=== PATIENT | male | born 1965 | race American Indian/Alaskan Native ===

== ENCOUNTER 2017-01-22 17:47 | Emergency (ER) | payer OTHER ==
[2017-01-22] MEDS ORDERED: DUONEB *Not for PRN Use IH ONE ×2 (18:32→20:53)
[2017-01-22 18:33] LABS: Basophils % (Auto) 0.6 % (0.0-1.8); Eosinophils % (Auto) 4.1 % (0.0-4.3); Hematocrit 46.7 % (35.5-45.6); Hemoglobin 15.2 gm/dl (11.8-15.2); Mean Corpuscular HGB Conc 33 % (32-34); Mean Corpuscular Hemoglobin 28 pg (28-32); Mean Corpuscular Volume 86 fl (84-94); Platelet Count 217 K/mm3 (140-440); Red Cell Distribution Width 13.9 % (13.2-15.2); White Blood Count 7.5 K/mm3 (4.5-11.0)
[2017-01-22 18:37] LABS: Anion Gap 16 mmol/L; BUN/Creatinine Ratio 11; Blood Urea Nitrogen 11 mg/dL (9-20); Carbon Dioxide 29 mmol/L (22-30); Glucose 81 mg/dL (75-100); Potassium 4.6 mmol/L (3.6-5.0); Sodium 141 mmol/L (137-145)
--- NOTE | 2017-01-22 18:43 | Emergency Department Report ---
Chief Complaint: Dyspnea/Respdistress Stated Complaint: CP Time Seen by Provider: 01/22/17 18:41 - HPI History of Present Illness: Patient with H/O asthma and sarcoidosis states he ran out of his prednisone, rescue inhaler and nebulizer refills last week and started to feel SOB and had worsening wheezing over the last few days; this morning started having intermittent left-sided CP; denies N/V - ROS Review of Systems: Negative except for those stated in HPI - Exam Vital Signs: Vital Signs 01/22/17 17:57 Temperature 97.8 F Pulse Rate 80 Blood Pressure 129/80 O2 Sat by Pulse 99 Oximetry Physical Exam: NAD RRR Bilateral inspiratory and expiratory wheezing present MSE screening note: Focused history and physical exam performed. Due to findings the following was ordered: labs, EKG, CXR Patient to be seen by provider in Main ED ED Medical Decision Making - Lab Data Result diagrams: 01/22/17 18:09 01/22/17 18:09 ED Disposition for MSE Condition: Stable
--- NOTE | 2017-01-22 20:14 | XRay Report ---
FINAL REPORT PROCEDURE: Chest. TECHNIQUE: PA and lateral views. HISTORY: Shortness of breath. COMPARISON: No prior studies are available for comparison. FINDINGS: The heart size is normal. There is abnormal interstitial opacity in both lungs. This is most severe in the upper lobes. There is elevation of both jacob from fibrotic retraction. There is apical pleural thickening on the right. There are no definite mass lesions. There are no definite signs of pneumonia. Comparison to older radiographs would be useful if they can be made available. There are no pleural effusions. The lungs are hyperinflated consistent with COPD. The soft tissues and regional skeleton are unremarkable. IMPRESSION: COPD with extensive fibrotic scarring.
[2017-01-22] MEDS ORDERED: PROVENTIL IH ONE ×2 (23:41→23:45)
--- NOTE | 2017-01-23 01:56 | Emergency Department Report ---
ED Shortness of Breath HPI - General Chief Complaint: Dyspnea/Respdistress Stated Complaint: CP Time Seen by Provider: 01/22/17 18:41 Source: patient Mode of arrival: Ambulatory Limitations: No Limitations - History of Present Illness Initial Comments: 51 yo male who comes in today due to shortness of breath. He states that he has a history of sarcoidosis, for which he normally takes prednisone and albuterol as needed. He was on a steroid taper, however he ran out of prednisone prior to completing the taper. Denies chest pain, nausea, vomiting, fever, or chills. He does admit to fatigue with exertion. MD Complaint: shortness of breath -: week(s) (two ) Radiation: other (none) Consistency: constant Improves With: oxygen, rest, bronchodilators, medication (prednisone) Worsens With: exertion Known History Of: other (sarcoidosis ) Context: other (none) Treatments Prior to Arrival: bronchodilator - Related Data Previous Rx's Medication Instructions Recorded Last Taken Type ALBUTEROL Inhaler [ProAir HFA 2 puff IH QID PRN #1 inhalation 01/23/17 Unknown Rx Inhaler] Prednisone 5 mg PO DAILY #60 tablet 01/23/17 Unknown Rx Allergies Allergy/AdvReac Type Severity Reaction Status Date / Time No Known Allergies Allergy Verified 01/22/17 20:55 ED Review of Systems ROS: Stated complaint: CP Other details as noted in HPI Constitutional: denies: chills, fever Eyes: denies: eye pain, eye discharge, vision change ENT: denies: ear pain, throat pain Respiratory: no symptoms reported, shortness of breath Cardiovascular: denies: chest pain, palpitations Endocrine: no symptoms reported Gastrointestinal: denies: abdominal pain, nausea, diarrhea Genitourinary: denies: urgency, dysuria Musculoskeletal: denies: back pain, joint swelling, arthralgia Skin: denies: rash, lesions Neurological: denies: headache, weakness, paresthesias Psychiatric: denies: anxiety, depression Hematological/Lymphatic: denies: easy bleeding, easy bruising ED Past Medical Hx - Past Medical History Previous Medical History?: Yes Hx Asthma: Yes Additional medical history: sarcoidosis - Surgical History Past Surgical History?: No - Social History Smoking Status: Former Smoker Substance Use Type: Alcohol - Medications Home Medications: Home Medications Medication Instructions Recorded Confirmed Last Taken Type ALBUTEROL Inhaler [ProAir HFA 2 puff IH QID PRN #1 inhalation 01/23/17 Unknown Rx Inhaler] Prednisone 5 mg PO DAILY #60 tablet 01/23/17 Unknown Rx ED Physical Exam - General Limitations: No Limitations General appearance: alert, in no apparent distress - Head Head exam: Present: atraumatic, normocephalic - Eye Eye exam: Present: normal appearance - ENT ENT exam: Present: mucous membranes moist - Neck Neck exam: Present: normal inspection - Respiratory Respiratory exam: Present: normal lung sounds bilaterally. Absent: respiratory distress - Cardiovascular Cardiovascular Exam: Present: regular rate, normal rhythm. Absent: systolic murmur, diastolic murmur, rubs, gallop - Extremities Exam Extremities exam: Present: normal inspection - Back Exam Back exam: Present: normal inspection - Neurological Exam Neurological exam: Present: alert, oriented X3 - Psychiatric Psychiatric exam: Present: normal affect, normal mood - Skin Skin exam: Present: warm, dry, intact, normal color. Absent: rash ED Course Vital Signs 01/22/17 01/22/17 01/22/17 17:57 21:04 21:11 Temperature 97.8 F Pulse Rate 80 Pulse Rate [ 79 82 Anterior Bilateral Throughout] Respiratory 20 20 Rate [Anterior Bilateral Throughout] Blood Pressure 129/80 O2 Sat by Pulse 99 Oximetry 01/22/17 01/23/17 23:49 00:05 Temperature Pulse Rate Pulse Rate [ 76 80 Anterior Bilateral Throughout] Respiratory 20 20 Rate [Anterior Bilateral Throughout] Blood Pressure O2 Sat by Pulse Oximetry ED Medical Decision Making - Lab Data Result diagrams: 01/22/17 18:09 01/22/17 18:09 - Radiology Data Radiology results: report reviewed (copd, history of sarcoidosis) copd, history of sarcoidosis - Medical Decision Making copd sarcoidosis - Differential Diagnosis sarcoidosis Critical care attestation.: If time is entered above; I have spent that time in minutes in the direct care of this critically ill patient, excluding procedure time. ED Disposition Clinical Impression: Sarcoidosis Disposition: DC-01 TO HOME OR SELFCARE Is pt being admited?: No Does the pt Need Aspirin: No Condition: Stable Instructions: Sarcoidosis (ED) Additional Instructions: Please establish with a provider on discharge. Take medicines as prescribed. Return to the ED for worsening shortness of breath, chest pain, fever, chills, or productive cough. Prescriptions: ALBUTEROL Inhaler [ProAir HFA Inhaler] 2 puff IH QID PRN #1 inhalation PRN Reason: Shortness Of Breath Prednisone 5 mg PO DAILY #60 tablet Referrals: BORIS BALLARD MD [Primary Care Provider] - 3-5 Days Time of Disposition: 02:08
[2017-01-23 02:03] VITALS: BP 129/86
== END 2017-01-23 02:45 | disposition home or self-care (01) ==
LOC: ED 17:47
DX: D86.9 Sarcoidosis, unspecified (principal); J45.909 Unspecified asthma, uncomplicated; Z87.891 Personal history of nicotine dependence
CPT/HCPCS: 36415; 71020; 80048; 84484; 85025; 93005; 93010; 94640; 96372; 99284; J2930

== ENCOUNTER 2017-07-05 06:39 | Emergency (ER) | payer SELFPAY ==
[2017-07-05] MEDS ORDERED: ASPIRIN PO ONE (06:48)
[2017-07-05 07:24] LABS: Basophils # (Auto) 0.1 K/mm3 (0.0-0.1); Basophils % (Auto) 1.2 % (0.0-1.8); Eosinophils # (Auto) 0.3 K/mm3 (0.0-0.4); Eosinophils % (Auto) 3.6 % (0.0-4.3); Hematocrit 44.9 % (35.5-45.6); Hemoglobin 14.3 gm/dl (11.8-15.2); Lymphocytes # (Auto) 2.3 K/mm3 (1.2-5.4); Lymphocytes % (Auto) 29.1 % (13.4-35.0); Mean Corpuscular HGB Conc 32 % (32-34); Mean Corpuscular Hemoglobin 27 pg (28-32); Mean Corpuscular Volume 85 fl (84-94); Monocytes # (Auto) 0.9 K/mm3 (0.0-0.8); Monocytes % (Auto) 11.1 % (0.0-7.3); Platelet Count 301 K/mm3 (140-440); Red Blood Count 5.26 M/mm3 (3.65-5.03); Red Cell Distribution Width 14.1 % (13.2-15.2)
--- NOTE | 2017-07-05 07:24 | XRay Report ---
FINAL REPORT EXAM: XR CHEST ROUTINE 2V HISTORY: Shortness of breath TECHNIQUE: PA and lateral chest radiographs PRIORS: 01/22/2017 FINDINGS: No mediastinal shift. Cardiac silhouette is not enlarged. Mild hyperaeration of the lungs. No pneumothorax or definite effusion. Bilateral upper lung airspace disease and suggested bronchiectasis are unchanged from prior. No acute skeletal finding. IMPRESSION: Bilateral upper lung airspace disease superimposed upon suggested COPD is unchanged from 01/22/2017.
[2017-07-05 07:29] LABS: BUN/Creatinine Ratio 16; Blood Urea Nitrogen 18 mg/dL (9-20); Hemolysis Index 6
[2017-07-05] MEDS ORDERED: ATROVENT IH ONE (10:12)
[2017-07-05] MEDS ORDERED: PROVENTIL IH ONE (10:12)
--- NOTE | 2017-07-05 10:19 | Emergency Department Report ---
Chief Complaint: Chest Pain Stated Complaint: CP; SOB - HPI History of Present Illness: 51-year-old AA male presents to the emergency department with complaint of some shortness of breath, wheezing, dry cough, chest tightness/pain since last night. Patient has a history of sarcoidosis and is on 20 mg prednisone daily. He usually uses albuterol nebulizer treatments but has been out of this medication for the past few days and therefore has been unable to take it. He says "I know what this is" and believes is related to his sarcoidosis and breathing issues. Recent travel or sick contacts at home. He does not appear to have a current primary care physician. - ROS Review of Systems: Positive for chest pain, short of breath, wheezing, cough Negative for fever, nausea, vomiting, back pain - Exam Vital Signs: Vital Signs 07/05/17 06:47 Temperature 98.1 F Pulse Rate 88 Respiratory 16 Rate Blood Pressure 118/80 O2 Sat by Pulse 96 Oximetry Physical Exam: Patient does not appear in any acute or respiratory distress. He has inspiratory and expiratory mild wheezing throughout the chest but no tachypnea or accessory muscle use. Heart sounds are normal auscultation. MSE screening note: Focused history and physical exam performed. Due to findings the following was ordered: The patient will have an IV placed and will be given Solu-Medrol as well as a breathing treatment. He will receive aspirin. He has an EKG that appears unchanged from January 2017. So far his first troponin is negative and the rest of the lab work is unremarkable. He will receive serial troponins. Chest x-ray shows signs of sarcoidosis and COPD but there is an area of opacity to the right upper lung that is also unchanged from previous. He will start receiving treatment and will most likely be seen by the physician on the main ED side secondary to his complaint of chest pain. ED Medical Decision Making - Lab Data Result diagrams: 07/05/17 06:56 07/05/17 06:56 ED Disposition for MSE Condition: Stable Referrals: PRIMARY CARE, [Primary Care Provider] - 3-5 Days
[2017-07-05] MEDS ORDERED: ASPIRIN ONE (10:28)
--- NOTE | 2017-07-05 12:05 | Emergency Department Report ---
ED Chest Pain HPI - General Chief Complaint: Chest Pain Stated Complaint: CP; SOB Time Seen by Provider: 07/05/17 11:03 Source: patient, family Mode of arrival: Ambulatory Limitations: No Limitations - History of Present Illness Initial Comments: 51-year-old AA male presents to the emergency department with complaint of some shortness of breath, wheezing, dry cough, chest tightness/pain since last night. Patient has a history of sarcoidosis and is on 20 mg prednisone daily. He usually uses albuterol nebulizer treatments but has been out of this medication for the past few days and therefore has been unable to take it. He says "I know what this is" and believes is related to his sarcoidosis and breathing issues. Recent travel or sick contacts at home. He does not appear to have a current primary care physician. He is a former smoker. Denies any illicit drug use. - Related Data Previous Rx's Medication Instructions Recorded Last Taken Type Prednisone 5 mg PO DAILY #60 tablet 01/23/17 Unknown Rx ALBUTEROL Inhaler [ProAir HFA 2 puff IH QID PRN #1 inhalation 07/05/17 Unknown Rx Inhaler] ALBUTEROL NEB's [Proventil 0.083% 2.5 mg IH TID PRN #1 box 07/05/17 Unknown Rx NEBS] Prednisone [predniSONE 10 mg 10 mg PO .TAPER #1 tab.ds.pk 07/05/17 Unknown Rx (6-Day Pack, 21 Tabs)] Sulfamethoxazole/Trimethoprim 1 each PO BID #14 tablet 07/05/17 Unknown Rx [Bactrim DS TAB] Allergies Allergy/AdvReac Type Severity Reaction Status Date / Time No Known Allergies Allergy Verified 01/22/17 20:55 Heart Score - HEART Score History: Slightly suspicious EKG: Normal Age: 45-65 Risk factors: 1-2 risk factors Troponin: < normal limit HEART Score: 2 - Critical Actions Critical Actions: 0-3 pts:0.9-1.7%risk of adverse cardiac event.Candidate for discharge ED Review of Systems ROS: Stated complaint: CP; SOB Other details as noted in HPI Comment: All other systems reviewed and negative Constitutional: denies: chills, fever Eyes: denies: eye pain, eye discharge, vision change ENT: denies: ear pain, throat pain Respiratory: cough, shortness of breath, wheezing Cardiovascular: chest pain Gastrointestinal: denies: abdominal pain, nausea, diarrhea Genitourinary: denies: urgency, dysuria Musculoskeletal: denies: back pain, joint swelling, arthralgia Skin: denies: rash, lesions Neurological: denies: headache, weakness, paresthesias ED Past Medical Hx - Past Medical History Previous Medical History?: Yes Hx Asthma: Yes Additional medical history: sarcoidosis, Bronchitis - Surgical History Past Surgical History?: No - Social History Smoking Status: Former Smoker Substance Use Type: None - Medications Home Medications: Home Medications Medication Instructions Recorded Confirmed Last Taken Type Prednisone 5 mg PO DAILY #60 tablet 01/23/17 Unknown Rx ALBUTEROL Inhaler [ProAir HFA 2 puff IH QID PRN #1 inhalation 07/05/17 Unknown Rx Inhaler] ALBUTEROL NEB's [Proventil 0.083% 2.5 mg IH TID PRN #1 box 07/05/17 Unknown Rx NEBS] Prednisone [predniSONE 10 mg 10 mg PO .TAPER #1 tab.ds.pk 07/05/17 Unknown Rx (6-Day Pack, 21 Tabs)] Sulfamethoxazole/Trimethoprim 1 each PO BID #14 tablet 07/05/17 Unknown Rx [Bactrim DS TAB] ED Physical Exam - General Limitations: No Limitations ED Course Vital Signs 07/05/17 07/05/17 07/05/17 06:47 10:38 11:35 Temperature 98.1 F Pulse Rate 88 Pulse Rate [ 74 80 Anterior Bilateral Throughout] Respiratory 16 Rate Respiratory 20 20 Rate [Anterior Bilateral Throughout] Blood Pressure 118/80 O2 Sat by Pulse 96 Oximetry ED Medical Decision Making - Lab Data Result diagrams: 07/05/17 06:56 07/05/17 06:56 - EKG Data -: EKG Interpreted by Or EKG shows normal: sinus rhythm, axis (left axis deviation), intervals, QRS complexes, ST-T waves (T-wave inversions to the septal leads) Rate: normal - EKG Data When compared to previous EKG there are: no significant change Interpretation: unchanged when compared t (01/2017) - Radiology Data Radiology results: report reviewed XRay Report Signed Patient: SPRING YIP MR#: [id number] : 1965 Acct:[id number] Age/Sex: 51 / M ADM Date: 07/05/17 Loc: ED Attending Dr: Ordering Physician: CHAUNCEY SPAULDING MD Date of Service: 07/05/17 Procedure(s): XR chest routine 2V Accession Number(s): [id number] cc: ED MD CHELLY Fluoro Time In Minutes: FINAL REPORT EXAM: XR CHEST ROUTINE 2V HISTORY: Shortness of breath TECHNIQUE: PA and lateral chest radiographs PRIORS: 01/22/2017 FINDINGS: No mediastinal shift. Cardiac silhouette is not enlarged. Mild hyperaeration of the lungs. No pneumothorax or definite effusion. Bilateral upper lung airspace disease and suggested bronchiectasis are unchanged from prior. No acute skeletal finding. IMPRESSION: Bilateral upper lung airspace disease superimposed upon suggested COPD is unchanged from 01/22/2017. Transcribed By: MB Dictated By: BORIS GOODEN MD Electronically Authenticated By: BORIS GOODEN MD Signed Date/Time: 07/05/17 0720 Critical care attestation.: If time is entered above; I have spent that time in minutes in the direct care of this critically ill patient, excluding procedure time. ED Disposition Clinical Impression: Bronchospasm, Sarcoidosis Disposition: DC-01 TO HOME OR SELFCARE Is pt being admited?: No Condition: Stable Instructions: Sarcoidosis (ED), Chest Pain (ED), Bronchospasm (ED) Additional Instructions: Please follow up with a primary care physician as well as a asbestos worker helper. I have given him a referral for a local transport tank technician, to follow up regarding your chest tightness, Dr. Mulligan. Take the antibiotics and steroids as prescribed. Use the albuterol as necessary. Return to the emergency department with any return of your symptoms, or any acute distress. Prescriptions: ALBUTEROL Inhaler [ProAir HFA Inhaler] 2 puff IH QID PRN #1 inhalation PRN Reason: Shortness Of Breath ALBUTEROL NEB's [Proventil 0.083% NEBS] 2.5 mg IH TID PRN #1 box PRN Reason: Wheezing Prednisone [predniSONE 10 mg (6-Day Pack, 21 Tabs)] 10 mg PO .TAPER #1 tab.ds.pk Sulfamethoxazole/Trimethoprim [Bactrim DS TAB] 1 each PO BID #14 tablet Referrals: PRIMARY CARE, [Primary Care Provider] - 3-5 Days LORI SMITH MD [Staff Physician] - 3-5 Days SHANTA JAIME MD [Staff Physician] - 3-5 Days FREDDIE MULLIGAN MD [Staff Physician] - 3-5 Days Time of Disposition: 12:06
[2017-07-05 12:14] VITALS: BP 122/89
== END 2017-07-05 12:19 | disposition home or self-care (01) ==
LOC: ED 06:39
DX: J98.01 Acute bronchospasm (principal); D86.9 Sarcoidosis, unspecified; Z87.891 Personal history of nicotine dependence
CPT/HCPCS: 36415; 71046; 80048; 84484; 85025; 93005; 93010; 94640; 96374; 99284; J2930

== ENCOUNTER 2017-08-22 16:22 | Emergency (ER) | payer OTHER ==
[2017-08-22 16:39] VITALS: BP 111/72
[2017-08-22] MEDS ORDERED: PROVENTIL IH ONE (20:39)
[2017-08-22] MEDS ORDERED: DECADRON IV ONE (20:39)
--- NOTE | 2017-08-22 20:44 | Emergency Department Report ---
- General Chief Complaint: Upper Respiratory Infection Stated Complaint: SOB, TIGHTNESS IN CHEST Time Seen by Provider: 08/22/17 20:38 Source: patient Mode of arrival: Ambulatory Limitations: No Limitations - History of Present Illness Initial Comments: [id number] male with a past medical history sarcoidosis, bronchitis and asthma. He comes into the ER complaining of chest tightness and wheezing. Patient reports he's been out of this asthma medication for 3-4 weeks. Patient reports that the wheezing started earlier today. Patient reports he does not have a primary care provider at this time. Patient has no known drug allergies currently taking no medication at this time since his ran out. Patient denies any fever chills no nausea no vomiting. MD Complaint: cough, other (wheezing) -: This morning Severity scale (0 -10): 5 Consistency: intermittent Associated Symptoms: cough, chest pain (tightness). denies: fever, chills, headache, nasal congestion, sore throat, nausea, vomiting, rash Treatments Prior to Arrival: none - Related Data Previous Rx's Medication Instructions Recorded Last Taken Type Prednisone 5 mg PO DAILY #60 tablet 01/23/17 Unknown Rx Sulfamethoxazole/Trimethoprim 1 each PO BID #14 tablet 07/05/17 Unknown Rx [Bactrim DS TAB] ALBUTEROL Inhaler [ProAir HFA 2 puff IH QID PRN #1 inhalation 08/22/17 Unknown Rx Inhaler] ALBUTEROL NEB's [Proventil 0.083% 2.5 mg IH TID PRN #1 box 08/22/17 Unknown Rx NEBS] Prednisone [predniSONE 10 mg 10 mg PO .TAPER #1 tab.ds.pk 08/22/17 Unknown Rx (6-Day Pack, 21 Tabs)] Allergies Allergy/AdvReac Type Severity Reaction Status Date / Time No Known Allergies Allergy Verified 01/22/17 20:55 ED Review of Systems ROS: Stated complaint: SOB, TIGHTNESS IN CHEST Other details as noted in HPI Respiratory: shortness of breath, wheezing Cardiovascular: chest pain (chest tightness) Gastrointestinal: denies: abdominal pain, nausea, diarrhea Genitourinary: denies: urgency, dysuria Musculoskeletal: denies: back pain, joint swelling, arthralgia Skin: denies: rash, lesions ED Past Medical Hx - Past Medical History Previous Medical History?: Yes Hx Asthma: Yes Additional medical history: sarcoidosis, Bronchitis - Surgical History Past Surgical History?: No - Social History Smoking Status: Former Smoker Substance Use Type: Alcohol, Prescribed - Medications Home Medications: Home Medications Medication Instructions Recorded Confirmed Last Taken Type Prednisone 5 mg PO DAILY #60 tablet 01/23/17 Unknown Rx Sulfamethoxazole/Trimethoprim 1 each PO BID #14 tablet 07/05/17 Unknown Rx [Bactrim DS TAB] ALBUTEROL Inhaler [ProAir HFA 2 puff IH QID PRN #1 inhalation 08/22/17 Unknown Rx Inhaler] ALBUTEROL NEB's [Proventil 0.083% 2.5 mg IH TID PRN #1 box 08/22/17 Unknown Rx NEBS] Prednisone [predniSONE 10 mg 10 mg PO .TAPER #1 tab.ds.pk 08/22/17 Unknown Rx (6-Day Pack, 21 Tabs)] ED Physical Exam - General Limitations: No Limitations General appearance: alert, in no apparent distress - Head Head exam: Present: atraumatic, normocephalic - Eye Eye exam: Present: EOMI - ENT ENT exam: Present: mucous membranes moist - Respiratory Respiratory exam: Present: rhonchi, prolonged expiratory - Cardiovascular Cardiovascular Exam: Present: regular rate, normal rhythm. Absent: systolic murmur, diastolic murmur, rubs, gallop - GI/Abdominal GI/Abdominal exam: Present: soft, normal bowel sounds - Extremities Exam Extremities exam: Present: full ROM - Neurological Exam Neurological exam: Present: alert, oriented X3 - Psychiatric Psychiatric exam: Present: normal affect, normal mood - Skin Skin exam: Present: warm, dry, intact, normal color. Absent: rash ED Course Vital Signs 08/22/17 16:33 Temperature 98.7 F Pulse Rate 83 Respiratory 18 Rate Blood Pressure 111/72 O2 Sat by Pulse 97 Oximetry - Reevaluation(s) Reevaluation #1: 08/22/17 20:45 Patient reports that he feels much better after having the treatment. Patient still has rhonchus but moving air better. ED Medical Decision Making - Radiology Data Radiology results: report reviewed, image reviewed FINDINGS: The cardiomediastinal silhouette appears iván and unchanged l. There is stable advanced biapical parenchymal scar and architectural distortion consistent with chronic lung disease. There are no acute infiltrates. The bones and soft tissues are unremarkable. IMPRESSION: Stable bilateral upper lobe chronic lung disease. No acute findings. Transcribed By: MLFrancy Dictated By: KALYANI NINO MD Electronically Authenticated By: KALYANI NINO MD Signed Date/Time: 08/22/172115 DD/ 15 TD/TT: 08/22/172115 - Medical Decision Making Patient has been evaluated by this provider fast track. EKG, chest x-ray, albuterol neb treatment and dexamethasone 8 mg IM. An order for the patient. Critical care attestation.: If time is entered above; I have spent that time in minutes in the direct care of this critically ill patient, excluding procedure time. ED Disposition Clinical Impression: Chronic lung disease, Rhonchi Disposition: - TO HOME OR SELFCARE Is pt being admited?: No Does the pt Need Aspirin: No Condition: Stable Instructions: Reactive Airways Disease (ED) Additional Instructions: Take medications as prescribed. Please follow-up with [facility] for continuation of care. Prescriptions: ALBUTEROL Inhaler [ProAir HFA Inhaler] 2 puff IH QID PRN #1 inhalation PRN Reason: Shortness Of Breath ALBUTEROL NEB's [Proventil 0.083% NEBS] 2.5 mg IH TID PRN #1 box PRN Reason: Wheezing Prednisone [predniSONE 10 mg (6-Day Pack, 21 Tabs)] 10 mg PO .TAPER #1 tab.ds.pk Referrals: PRIMARY CARE, [Primary Care Provider] - 3-5 Days Forms: Work/School Release Form(ED)
[2017-08-22] MEDS ORDERED: DECADRON IM ONE (20:48)
--- NOTE | 2017-08-22 21:21 | XRay Report ---
FINAL REPORT EXAM: XR CHEST ROUTINE 2V HISTORY: chest tightness, wheezing TECHNIQUE: 2 views of the chest. PRIORS: 07/05/2017 FINDINGS: The cardiomediastinal silhouette appears iván and unchanged l. There is stable advanced biapical parenchymal scar and architectural distortion consistent with chronic lung disease. There are no acute infiltrates. The bones and soft tissues are unremarkable. IMPRESSION: Stable bilateral upper lobe chronic lung disease. No acute findings.
== END 2017-08-22 21:40 | disposition home or self-care (01) ==
LOC: ED 16:22
DX: J98.4 Other disorders of lung (principal); R06.89 Other abnormalities of breathing; R07.89 Other chest pain; J45.909 Unspecified asthma, uncomplicated; Z87.891 Personal history of nicotine dependence
CPT/HCPCS: 71046; 93005; 93010; 94640; 96372; 99283; J1100

== ENCOUNTER 2017-09-24 22:04 | Emergency (ER) | payer SELFPAY ==
[2017-09-24 23:07] VITALS: BP 100/62
--- NOTE | 2017-09-24 23:56 | XRay Report ---
FINAL REPORT PROCEDURE: XR CHEST ROUTINE 2V TECHNIQUE: PA and lateral chest radiographs were obtained. CPT 25442 HISTORY: FALL, PAIN WITH COUGH COMPARISON: 08/22/2017 FINDINGS: Heart: Normal. Mediastinum/Vessels: Normal. Lungs/Pleural space: Lungs are hyperinflated. Fibro cavitary lesions are noted involving bilateral lung apices. A large cavitary lesion in the right apex measures about 8 centimeters. Bilateral pleural spaces are clear.. Bony thorax: No acute osseous abnormality. Other: IMPRESSION: Fibro cavitary lesions of bilateral upper lobes most likely represent granulomatous disease. Due to the presence of the cavity etiologies such as tuberculosis cannot be excluded. These findings are stable since the prior study..
--- NOTE | 2017-09-25 03:14 | Emergency Department Report ---
ED General Adult HPI - General Chief complaint: Fall Stated complaint: LOWER BACK PAIN POST FALL Time Seen by Provider: 09/25/17 03:13 Source: patient Mode of arrival: Ambulatory Limitations: No Limitations - History of Present Illness Initial comments: 52-year-old -[place] male with a past medical history of bronchitis and sarcoidosis reports that he fallen down 4 steps today. Patient denies any loss of consciousness or long time been down. Patient reports that his lower right back and hit one of the steps. Now has pain to the right lower back. Patient reports that the pain is sore and sharp with deep breaths but no problems breathing or shortness of breath. -: This afternoon Location: back Radiation: non-radiation Severity scale (0 -10): 9 Quality: aching, sharp Consistency: constant Improves with: rest Worsens with: movement Associated Symptoms: denies other symptoms Treatments Prior to Arrival: none - Related Data Previous Rx's Medication Instructions Recorded Last Taken Type Prednisone 5 mg PO DAILY #60 tablet 01/23/17 Unknown Rx Sulfamethoxazole/Trimethoprim 1 each PO BID #14 tablet 07/05/17 Unknown Rx [Bactrim DS TAB] ALBUTEROL Inhaler [ProAir HFA 2 puff IH QID PRN #1 inhalation 08/22/17 Unknown Rx Inhaler] ALBUTEROL NEB's [Proventil 0.083% 2.5 mg IH TID PRN #1 box 08/22/17 Unknown Rx NEBS] Prednisone [predniSONE 10 mg 10 mg PO .TAPER #1 tab.ds.pk 08/22/17 Unknown Rx (6-Day Pack, 21 Tabs)] Ibuprofen [Motrin 600 MG tab] 600 mg PO Q8H #30 tablet 09/25/17 Unknown Rx Allergies Allergy/AdvReac Type Severity Reaction Status Date / Time No Known Allergies Allergy Verified 01/22/17 20:55 ED Review of Systems ROS: Stated complaint: LOWER BACK PAIN POST FALL Other details as noted in HPI Comment: All other systems reviewed and negative Musculoskeletal: back pain ED Past Medical Hx - Past Medical History Hx Asthma: Yes Additional medical history: sarcoidosis, Bronchitis, ASTHMA - Social History Smoking Status: Never Smoker Substance Use Type: None - Medications Home Medications: Home Medications Medication Instructions Recorded Confirmed Last Taken Type Prednisone 5 mg PO DAILY #60 tablet 01/23/17 Unknown Rx Sulfamethoxazole/Trimethoprim 1 each PO BID #14 tablet 07/05/17 Unknown Rx [Bactrim DS TAB] ALBUTEROL Inhaler [ProAir HFA 2 puff IH QID PRN #1 inhalation 08/22/17 Unknown Rx Inhaler] ALBUTEROL NEB's [Proventil 0.083% 2.5 mg IH TID PRN #1 box 08/22/17 Unknown Rx NEBS] Prednisone [predniSONE 10 mg 10 mg PO .TAPER #1 tab.ds.pk 08/22/17 Unknown Rx (6-Day Pack, 21 Tabs)] Ibuprofen [Motrin 600 MG tab] 600 mg PO Q8H #30 tablet 09/25/17 Unknown Rx ED Physical Exam - General Limitations: No Limitations - Head Head exam: Present: atraumatic, normocephalic - Eye Eye exam: Present: EOMI - ENT ENT exam: Present: mucous membranes moist - Respiratory Respiratory exam: Present: normal lung sounds bilaterally. Absent: respiratory distress - Cardiovascular Cardiovascular Exam: Present: regular rate, normal rhythm. Absent: systolic murmur, diastolic murmur, rubs, gallop - Back Exam Back exam: Present: full ROM (lower back), tenderness - Neurological Exam Neurological exam: Present: alert, oriented X3 - Psychiatric Psychiatric exam: Present: normal affect, normal mood - Skin Skin exam: Present: warm, dry, intact, normal color. Absent: rash ED Course Vital Signs 09/24/17 22:58 Temperature 98.4 F Pulse Rate 75 Respiratory 18 Rate Blood Pressure 100/62 O2 Sat by Pulse 97 Oximetry ED Medical Decision Making - Radiology Data Radiology results: report reviewed, image reviewed FINDINGS: Heart: Normal. Mediastinum/Vessels: Normal. Lungs/Pleural space: Lungs are hyperinflated. Fibro cavitary lesions are noted involving bilateral lung apices. A large cavitary lesion in the right apex measures about 8 centimeters. Bilateral pleural spaces are clear.. Bony thorax: No acute osseous abnormality. Other: IMPRESSION: Fibro cavitary lesions of bilateral upper lobes most likely represent granulomatous disease. Due to the presence of the cavity etiologies such as tuberculosis cannot be excluded. These findings are stable since the prior study.. Transcribed By: [facility] [place] Dictated By: ZARA ZIEGLER Electronically Authenticated By: ZARA ZIEGLER Signed Date/Time: 09/24/172348 DD/ 48 TD/TT: 09/24/172348 - Medical Decision Making Patient has been evaluated by this provider in fast track. Ibuprofen has been ordered for pain management. This x-ray was ordered which shows stable scarring. We'll discharge patient on ibuprofen. Patient can follow up this primary care provider symptoms persist or gets worse. Critical care attestation.: If time is entered above; I have spent that time in minutes in the direct care of this critically ill patient, excluding procedure time. ED Disposition Clinical Impression: Fall (on) (from) other stairs and steps, initial encounter Back contusion Qualifiers: Encounter type: initial encounter Laterality: right Qualified Code(s): S20.221A - Contusion of right back wall of thorax, initial encounter Disposition: DC-01 TO HOME OR SELFCARE Is pt being admited?: No Does the pt Need Aspirin: No Condition: Stable Instructions: Low Back Strain (ED), Back Pain (ED) Additional Instructions: Please take pain medication as needed. Follow-up to primary care provider if symptoms persist or gets worse Prescriptions: Ibuprofen [Motrin 600 MG tab] 600 mg PO Q8H #30 tablet Referrals: PRIMARY CARE, [Primary Care Provider] - 3-5 Days Forms: Work/School Release Form(ED)
[2017-09-25] MEDS ORDERED: MOTRIN PO ONE (03:21)
== END 2017-09-25 03:25 | disposition home or self-care (01) ==
LOC: ED 22:04
DX: S20.221A Contusion of right back wall of thorax, initial encounter (principal); J45.909 Unspecified asthma, uncomplicated; W10.9XXA Fall (on) (from) unspecified stairs and steps, initial encounter; Y93.89 Activity, other specified; Y99.8 Other external cause status; Y92.89 Other specified places as the place of occurrence of the external cause
CPT/HCPCS: 71046; 99283

== ENCOUNTER 2018-03-17 13:04 | Emergency (ER) | payer SELFPAY ==
[2018-03-17] MEDS ORDERED: ASPIRIN PO ONE (13:30)
[2018-03-17 13:45] LABS: Basophils # (Auto) 0.1 K/mm3 (0.0-0.1); Basophils % (Auto) 1.2 % (0.0-1.8); Eosinophils # (Auto) 0.8 K/mm3 (0.0-0.4); Eosinophils % (Auto) 12.1 % (0.0-4.3); Hematocrit 43.4 % (35.5-45.6); Hemoglobin 13.9 gm/dl (11.8-15.2); Lymphocytes # (Auto) 1.7 K/mm3 (1.2-5.4); Lymphocytes % (Auto) 27.6 % (13.4-35.0); Mean Corpuscular HGB Conc 32 % (32-34); Mean Corpuscular Volume 85 fl (84-94); Monocytes # (Auto) 0.8 K/mm3 (0.0-0.8); Monocytes % (Auto) 13.2 % (0.0-7.3); Platelet Count 310 K/mm3 (140-440); Red Cell Distribution Width 14.2 % (13.2-15.2)
[2018-03-17 14:09] LABS: BUN/Creatinine Ratio 8; Blood Urea Nitrogen 8 mg/dL (9-20); Calcium 8.5 mg/dL (8.4-10.2); Hemolysis Index 6
--- NOTE | 2018-03-17 14:29 | XRay Report ---
FINAL REPORT EXAM: XR CHEST ROUTINE 2V HISTORY: sob/chest pain COMPARISON: Chest radiograph performed on 10/12/2017 TECHNIQUE: Frontal and lateral views of the chest FINDINGS: The cardiomediastinal silhouette is normal in appearance. Unchanged thyroid cavitary lesions of the bilateral upper lobes with dominant cavity in the right upp er lobe measuring approximately 7.3 centimeters no pleural effusion or pneumothorax. No acute bony or soft tissue abnormality. IMPRESSION: Stable fibro cavitary lesions of the bilateral upper lobes.
[2018-03-17] MEDS ORDERED: SOLU-Medrol IV ONE (14:40)
--- NOTE | 2018-03-17 14:49 | Emergency Department Report ---
HPI - General Chief Complaint: Chest Pain Time Seen by Provider: 03/17/18 14:29 - HPI HPI: Room 18 The patient is a 52-year-old male presenting with chief complaint of chest pain. Patient states symptoms began this morning with left-sided chest pain as sharpness. Patient admits pleurisy and shortness of breath. His MDI helped somewhat but his pain is still present. Patient denies nausea/vomiting or diaphoresis. Currently gets his pain is scored 8/10. Patient states he was taking prednisone 50 mg daily but has been out of it for approximately 2-3 months. Patient states his last stress test occurred over 5 years ago but he has never had a cardiac catheterization Location: Chest Duration: One day Quality: Sharpness Severity: 8/10 Modifying factors: [see above] Context: [see above] Mode of transportation: [not driving] ED Past Medical Hx - Past Medical History Hx Asthma: Yes Additional medical history: sarcoidosis, Bronchitis, ASTHMA - Surgical History Past Surgical History?: No - Family History Family history: no significant - Social History Smoking Status: Former Smoker Substance Use Type: None (denies illicit drug use), Alcohol (occasional) - Medications Home Medications: Home Medications Medication Instructions Recorded Confirmed Last Taken Type predniSONE [Prednisone] 5 mg PO DAILY #60 tablet 01/23/17 Unknown Rx Sulfamethoxazole/Trimethoprim 1 each PO BID #14 tablet 07/05/17 Unknown Rx [Bactrim DS TAB] ALBUTEROL NEB's [Proventil 0.083% 2.5 mg IH TID PRN #1 box 08/22/17 Unknown Rx NEBS] Prednisone [predniSONE 10 mg 10 mg PO .TAPER #1 tab.ds.pk 08/22/17 Unknown Rx (6-Day Pack, 21 Tabs)] Ibuprofen [Motrin 600 MG tab] 600 mg PO Q8H #30 tablet 09/25/17 Unknown Rx ALBUTEROL Inhaler (OR & NICU) 2 puff IH QID PRN #1 inhalation 12/18/17 Unknown Rx [ProAir HFA Inhaler] Benzonatate [Tessalon Perle] 100 mg PO TID #20 capsule 12/18/17 Unknown Rx predniSONE [Deltasone] 20 mg PO QDAY #7 tab 12/18/17 Unknown Rx ED Review of Systems ROS: Stated complaint: LOWER BACK PAIN/SOB/CHEST PAIN Other details as noted in HPI Constitutional: denies: diaphoresis Eyes: denies: eye pain ENT: denies: throat pain Respiratory: shortness of breath Cardiovascular: chest pain Endocrine: no symptoms reported Gastrointestinal: denies: nausea, vomiting Genitourinary: denies: dysuria Musculoskeletal: denies: back pain Neurological: denies: headache Physical Exam - Physical Exam Vital Signs: Vital Signs 03/17/18 13:10 Temperature 97.8 F Pulse Rate 83 Respiratory 18 Rate Blood Pressure 129/68 O2 Sat by Pulse 98 Oximetry Physical Exam: GENERAL: The patient is well-developed well-nourished male lying on stretcher not appearing to be in acute distress. [] HEENT: Normocephalic. Atraumatic. Extraocular motions are intact. Patient has moist mucous membranes. NECK: Supple. Trachea midline CHEST/LUNGS: Clear to auscultation. There is no respiratory distress noted. HEART/CARDIOVASCULAR: Regular. There is no tachycardia. There is no gallop rub or murmur. ABDOMEN: Abdomen is soft, nontender. Patient has normal bowel sounds. There is no abdominal distention. SKIN: There is no rash. There is no edema. There is no diaphoresis. NEURO: The patient is awake, alert, and oriented. The patient is cooperative. The patient has normal speech MUSCULOSKELETAL: There is no evidence of acute injury. ED Course Vital Signs 03/17/18 13:10 Temperature 97.8 F Pulse Rate 83 Respiratory 18 Rate Blood Pressure 129/68 O2 Sat by Pulse 98 Oximetry ED Medical Decision Making - Lab Data Result diagrams: 03/17/18 13:31 03/17/18 13:31 - EKG Data -: EKG Interpreted by Me EKG shows normal: sinus rhythm Rate: normal - EKG Data When compared to previous EKG there are: no significant change Interpretation: unchanged when compared t (08/22/2017) - Radiology Data Radiology results: report reviewed (chest x-ray, CT chest), image reviewed (chest x-ray, CT chest) interpreted by me: Chest [id number] with sarcoidosis, no pneumothorax [facility], [address] [place] [address] XRay Report Signed Patient: SPRING YIP MR#: [id number] : 1965 Acct:[id number] Age/Sex: 52 / M ADM Date: 03/17/18 Loc: ED Attending Dr: Ordering Physician: SCOTT ARMSTRONG Date of Service: 03/17/18 Procedure(s): XR chest routine 2V Accession Number(s): [id number] cc: SCOTT Torres Time In Minutes: FINAL REPORT EXAM: XR CHEST ROUTINE 2V HISTORY: sob/chest pain COMPARISON: Chest radiograph performed on 10/12/2017 TECHNIQUE: Frontal and lateral views of the chest FINDINGS: The cardiomediastinal silhouette is normal in appearance. Unchanged thyroid cavitary lesions of the bilateral upper lobes with dominant cavity in the right upper lobe measuring approximately 7.3 centimeters no pleural effusion or pneumothorax. No acute bony or soft tissue abnormality. IMPRESSION: Stable fibro cavitary lesions of the bilateral upper lobes. Transcribed By: ISAIAH Dictated By: SONALI MINER MD Electronically Authenticated By: SONALI MINER MD Signed Date/Time: 03/17/181428 DD/ 27 TD/TT: 03/17/181427 [place] [address] Cat Scan Report Signed Patient: SPRING YIP MR#: [id number] : 1965 Acct:[id number] Age/Sex: 52 / M ADM Date: 03/17/18 Loc: ED Attending Dr: Ordering Physician: ABA WOODS MD Date of Service: 03/17/18 Procedure(s): CT angio chest Accession Number(s): [id number] cc: ABA WOODS MD FINAL REPORT EXAM: CT ANGIO CHEST HISTORY: chest pain, shortness of breath TECHNIQUE: Following IV administration of 100 cc of Omnipaque 350 axial helical imaging was performed through the chest with sagittal and coronal reformatted images and maximum inte nsity projection images obtained. Comparison: Chest x-ray also performed today FINDINGS: There is extensive bilateral increased thickness of the interlobular septa and areas of pulmonary consolidation with bronchiectasis and bullous formation. The pulmonary consolidation is most marked in the upper lobes bilaterally. There appears to be pleural thickening in the anterior medial aspect of the right middle lobe and in the posterior aspect of the left lower lobe.. There is a small right pleural fluid collection. The trachea and bronchi are patent. The heart is normal size. The thoracic aorta is normal caliber. No filling defects are demonstrated within the pulmonary arteries to suggest the presence of pulmonary artery emboli. 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 The bony structures are unremarkable. IMPRESSION: 1. Interstitial and airspace process with evidence of bronchiectasis, bullous formation, pleural thickening and small right pleural fluid collection. Though much of this likely represents chronic change, a superimposed infectious process cannot be excluded. Comparison with previous chest CT is recommended. 2. No evidence of pulmonary artery emboli. 3. 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 Comparison with previous CT chest is recommended. Transcribed By: ED Dictated By: MAURO ARCHIBALD MD Electronically Authenticated By: MAURO ARCHIBALD MD Signed Date/Time: 03/17/181832 DD/ 31 TD/TT: 03/17/181831 - Differential Diagnosis ACS, PE, pericarditis, GERD Critical care attestation.: If time is entered above; I have spent that time in minutes in the direct care of this critically ill patient, excluding procedure time. ED Disposition Clinical Impression: Chest pain Disposition: -09 OP ADMIT IP TO THIS HOSP Is pt being admited?: Yes Does the pt Need Aspirin: Yes Condition: Fair Instructions: Chest Pain (ED) Referrals: MOLLY LOVELACE [Primary Care Provider] - 3-5 Days Time of Disposition: 18:36 (hospitalist notified (Dr Marin))
--- NOTE | 2018-03-17 18:33 | Cat Scan Report ---
FINAL REPORT EXAM: CT ANGIO CHEST HISTORY: chest pain, shortness of breath TECHNIQUE: Following IV administration of 100 cc of Omnipaque 350 axial helical imaging was performe d through the chest with sagittal and coronal reformatted images and maximum intensity projection milton ges obtained. Comparison: Chest x-ray also performed today FINDINGS: There is extensive bilateral increased thickness of the interlobular septa and areas of pulmonary con solidation with bronchiectasis and bullous formation. The pulmonary consolidation is most marked in t he upper lobes bilaterally. There appears to be pleural thickening in the anterior medial aspect of the right middle lobe and in the posterior aspect of the left lower lobe.. There is a small right pleural fluid collection. The trachea and bronchi are patent. The heart is normal size. The thoracic aorta is normal caliber. No filling defects are demonstrated within the pulmonary arteries to suggest the presence of pulmonar y artery emboli. 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 The bony structures are unremarkable. IMPRESSION: 1. Interstitial and airspace process with evidence of bronchiectasis, bullous formation, pleural thic kening and small right pleural fluid collection. Though much of this likely represents chronic change , a superimposed infectious process cannot be excluded. Comparison with previous chest CT is recommended. 2. No evidence of pulmonary artery emboli. 3. 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 Comparison with p revious CT chest is recommended.
--- NOTE | 2018-03-17 18:40 | Event Note ---
Date: 03/17/18 Patient comes in for sob and chest pain Patient has history of Sarcidosis and on Prednisone which he is not taking because he lost his insurancs O/e Chest wall tenderness present at 2nd and 3 rd L costochondral junction Troponins x2 negative D dimer High CTA chest no PE labs other haynes normal Dis Dx Costochondritis Meloxicam 15 mg po qd x 10 days Prednosone 20 mg po qd for 30 days F/u with Dr Oliver for sarcoidosis F/u with [facility] for stress test as out patient
[2018-03-17 19:40] VITALS: BP 123/77
== END 2018-03-17 19:40 | disposition admitted as inpatient to this hospital (09) ==
LOC: ED 13:04
DX: R07.89 Other chest pain (principal); R09.1 Pleurisy; R06.02 Shortness of breath; J45.909 Unspecified asthma, uncomplicated; Z87.891 Personal history of nicotine dependence
CPT/HCPCS: 36415; 71046; 71275; 80048; 84484; 85025; 85379; 93005; 93010; 96374; 99285; J2930; Q9967

== ENCOUNTER 2018-06-08 22:08 | Inpatient (IN) | payer SELFPAY ==
--- NOTE | 2018-06-08 23:51 | XRay Report ---
PROCEDURE: XR CHEST ROUTINE 2V TECHNIQUE: PA and lateral views the chest were obtained. HISTORY: Chest Pain COMPARISONS: 03/17/2018 FINDINGS: The lungs reveal stable diffuse interstitial fibrotic changes bilaterally with bullous changes in bot h upper lobes. The heart size is normal. There are no acute infiltrates or effusions. The skeletal st ructures do not show any acute changes. IMPRESSION: Stable diffuse interstitial fibrosis with bullous changes in the upper lobes. No acute infiltrates or effusions.. This document is electronically signed by Joseph Alexandre MD., June 08 2018 11:49:25 PM ET
[2018-06-09 00:07] LABS: Basophils % (Auto) 0.6 % (0.0-1.8); Eosinophils # (Auto) 0.4 K/mm3 (0.0-0.4); Eosinophils % (Auto) 6.1 % (0.0-4.3); Hematocrit 45.2 % (35.5-45.6); Hemoglobin 14.5 gm/dl (11.8-15.2); Lymphocytes # (Auto) 2.2 K/mm3 (1.2-5.4); Lymphocytes % (Auto) 33.4 % (13.4-35.0); Mean Corpuscular HGB Conc 32 % (32-34); Mean Corpuscular Volume 87 fl (84-94); Monocytes % (Auto) 15.5 % (0.0-7.3); Platelet Count 260 K/mm3 (140-440); Red Blood Count 5.23 M/mm3 (3.65-5.03); Red Cell Distribution Width 15.3 % (13.2-15.2)
[2018-06-09 00:33] LABS: BUN/Creatinine Ratio 8; Blood Urea Nitrogen 9 mg/dL (9-20); Calcium 9.1 mg/dL (8.4-10.2); Hemolysis Index 5
[2018-06-09] MEDS ORDERED: DUONEB *Not for PRN Use IH ONE (02:04)
[2018-06-09] MEDS ORDERED: SOLU-Medrol IV ONE (02:04)
[2018-06-09] MEDS ORDERED: MAGNESIUM SULFATE 2GM/50ML 2 GM/50 ML BAG IV ONE (02:04)
--- NOTE | 2018-06-09 02:04 | Emergency Department Report ---
ED Chest Pain HPI - General Chief Complaint: Chest Pain Stated Complaint: CHEST PAIN/SOB Time Seen by Provider: 06/09/18 01:51 Source: patient Mode of arrival: Ambulatory Limitations: No Limitations - History of Present Illness Initial Comments: Patient is a 52-year-old male presents emergency room with complaints of chest pain shortness of breath. Patient states he is also feeling lightheaded. Patient states symptoms started approximately 4 hours ago. Patient states his chest pain is a 10 out of 10 and is not radiating. Patient states it is in his left chest. Patient denies fever and chills. Patient states his chest pain and shortness of breath are worse with exertion. Patient states his chest pain shortness of breath are better with rest. Patient states she has a history of sarcoidosis and asthma. Patient is having increased work of breathing. MD Complaint: chest pain -: Sudden Onset: during rest, during exertion Pain Location: substernal, left chest Pain Radiation: none Severity: severe Severity scale (0 -10): 10 Quality: sharp Consistency: constant Improves With: rest, remaining still Worsens With: exertion, inspiration, palpation, movement re: dyspnea. denies: nausea, vomting, diaphoresis, sense of impending doom Other Symptoms: cough. denies: fever, syncope, rash, acid taste in mouth, leg swelling, palpitations, burping Treatments Prior to Arrival: other Aspirin use within the Past 7 Days: (0) No - Related Data On Oral Contraceptives: No Previous Rx's Medication Instructions Recorded Last Taken Type predniSONE [Prednisone] 5 mg PO DAILY #60 tablet 01/23/17 Unknown Rx Sulfamethoxazole/Trimethoprim 1 each PO BID #14 tablet 07/05/17 Unknown Rx [Bactrim DS TAB] ALBUTEROL NEB's [Proventil 0.083% 2.5 mg IH TID PRN #1 box 08/22/17 Unknown Rx NEBS] Prednisone [predniSONE 10 mg 10 mg PO .TAPER #1 tab.ds.pk 08/22/17 Unknown Rx (6-Day Pack, 21 Tabs)] Ibuprofen [Motrin 600 MG tab] 600 mg PO Q8H #30 tablet 09/25/17 Unknown Rx ALBUTEROL Inhaler (OR & NICU) 2 puff IH QID PRN #1 inhalation 12/18/17 Unknown Rx [ProAir HFA Inhaler] Benzonatate [Tessalon Perle] 100 mg PO TID #20 capsule 12/18/17 Unknown Rx predniSONE [Deltasone] 20 mg PO QDAY #7 tab 12/18/17 Unknown Rx Meloxicam 15 mg PO QDAY #10 tablet 03/17/18 Unknown Rx Prednisone [predniSONE (Aracely) ER 20 mg PO QDAY #30 tablet. 03/17/18 Unknown Rx TAB] Allergies Allergy/AdvReac Type Severity Reaction Status Date / Time No Known Allergies Allergy Verified 01/22/17 20:55 Heart Score - HEART Score History: Slightly suspicious EKG: Normal Age: 45-65 Risk factors: No known risk factors Troponin: < normal limit HEART Score: 1 ED Review of Systems ROS: Stated complaint: CHEST PAIN/SOB Other details as noted in HPI Constitutional: denies: chills, fever Eyes: denies: eye pain, eye discharge, vision change ENT: denies: ear pain, throat pain Respiratory: cough, shortness of breath, SOB with exertion, SOB at rest, wheezing Cardiovascular: chest pain. denies: palpitations Endocrine: no symptoms reported Gastrointestinal: denies: abdominal pain, nausea, diarrhea Genitourinary: denies: urgency, dysuria Musculoskeletal: denies: back pain, joint swelling, arthralgia Skin: denies: rash, lesions Neurological: denies: headache, weakness, paresthesias Psychiatric: denies: anxiety, depression Hematological/Lymphatic: denies: easy bleeding, easy bruising ED Past Medical Hx - Past Medical History Previous Medical History?: Yes Hx Asthma: Yes Additional medical history: sarcoidosis, Bronchitis, ASTHMA - Surgical History Past Surgical History?: No - Family History Family history: no significant - Social History Smoking Status: Never Smoker Substance Use Type: None - Medications Home Medications: Home Medications Medication Instructions Recorded Confirmed Last Taken Type predniSONE [Prednisone] 5 mg PO DAILY #60 tablet 01/23/17 Unknown Rx Sulfamethoxazole/Trimethoprim 1 each PO BID #14 tablet 07/05/17 Unknown Rx [Bactrim DS TAB] ALBUTEROL NEB's [Proventil 0.083% 2.5 mg IH TID PRN #1 box 08/22/17 Unknown Rx NEBS] Prednisone [predniSONE 10 mg 10 mg PO .TAPER #1 tab.ds.pk 08/22/17 Unknown Rx (6-Day Pack, 21 Tabs)] Ibuprofen [Motrin 600 MG tab] 600 mg PO Q8H #30 tablet 09/25/17 Unknown Rx ALBUTEROL Inhaler (OR & NICU) 2 puff IH QID PRN #1 inhalation 12/18/17 Unknown Rx [ProAir HFA Inhaler] Benzonatate [Tessalon Perle] 100 mg PO TID #20 capsule 12/18/17 Unknown Rx predniSONE [Deltasone] 20 mg PO QDAY #7 tab 12/18/17 Unknown Rx Meloxicam 15 mg PO QDAY #10 tablet 03/17/18 Unknown Rx Prednisone [predniSONE (Aracely) ER 20 mg PO QDAY #30 tablet. 03/17/18 Unknown Rx TAB] ED Physical Exam - General Limitations: No Limitations General appearance: alert, in distress - Head Head exam: Present: atraumatic, normocephalic - Eye Eye exam: Present: normal appearance, PERRL Pupils: Present: normal accommodation - ENT ENT exam: Present: mucous membranes moist - Neck Neck exam: Present: normal inspection - Respiratory Respiratory exam: Present: respiratory distress, wheezes, chest wall tenderness, accessory muscle use - Cardiovascular Cardiovascular Exam: Present: regular rate, normal rhythm. Absent: systolic murmur, diastolic murmur, rubs, gallop - GI/Abdominal GI/Abdominal exam: Present: soft, normal bowel sounds. Absent: distended, tenderness, guarding, rebound - Rectal Rectal exam: Present: deferred - Extremities Exam Extremities exam: Present: normal inspection - Back Exam Back exam: Present: normal inspection - Neurological Exam Neurological exam: Present: alert, oriented X3 - Psychiatric Psychiatric exam: Present: normal affect, normal mood - Skin Skin exam: Present: warm, dry, intact, normal color. Absent: rash ED Course Vital Signs 06/08/18 06/08/18 06/09/18 22:36 23:15 01:53 Temperature 98.6 F 98.6 F Pulse Rate 98 H 98 H Respiratory 18 18 Rate Blood Pressure 100/72 100/72 O2 Sat by Pulse 93 94 86 Oximetry 06/09/18 06/09/18 06/09/18 02:01 02:05 02:06 Temperature 98.9 F Pulse Rate 87 Respiratory 34 H 24 Rate Blood Pressure O2 Sat by Pulse 95 82 L Oximetry 06/09/18 06/09/18 06/09/18 02:15 02:30 02:45 Temperature Pulse Rate 91 H 84 78 Respiratory 23 30 H 26 H Rate Blood Pressure 110/74 110/80 110/79 O2 Sat by Pulse 98 98 100 Oximetry 06/09/18 06/09/18 06/09/18 03:00 03:15 03:30 Temperature Pulse Rate 78 79 81 Respiratory 18 19 16 Rate Blood Pressure 102/75 103/76 110/80 O2 Sat by Pulse 99 Oximetry 06/09/18 06/09/18 03:45 04:00 Temperature Pulse Rate 81 76 Respiratory 19 18 Rate Blood Pressure 103/68 101/67 O2 Sat by Pulse 99 97 Oximetry - Reevaluation(s) Reevaluation #1: Initial evaluation done. Patient is having significant work of breathing and wheezing. Patient also hypoxic. Patient was started on a DuoNeb as well as slight Medrol and mag run. pt will also be placed on oxygen. 06/09/18 02:05 Reevaluation #2: Patient is still wheezing. His work of breathing has improved. Patient was placed on a continuous albuterol treatment. Discussed all results with patient. Patient agrees with plan of care and results. Patient states he is feeling slightly better. Patient's oxygen is better. 06/09/18 04:04 - Consultations Consultation #1: Hospitalist consulted for admission. Hospitalist to admit patient. Hospitalist to assume care patient. 06/09/18 04:05 HILARIA score - Hilaria Score Age > 65: (0) No Aspirin use within the Past 7 Days: (0) No 3 or more CAD Risk Factors: (0) No 2 or more Angina events in past 24 hrs: (1) Yes Known CAD with more than 50% Stenosis: (0) No Elevated Cardiac Markers: (0) No ST Deviation Greater than 0.5mm: (0) No HILARIA Score: 1 ED Medical Decision Making - Lab Data Result diagrams: 06/08/18 23:45 06/08/18 23:45 - EKG Data -: EKG Interpreted by [place] EKG shows normal: sinus rhythm, intervals, QRS complexes, ST-T waves - EKG Data Interpretation: LVH, other (axis deviation) - Radiology Data Radiology results: report reviewed PROCEDURE: XR CHEST ROUTINE 2V TECHNIQUE: PA and lateral views the chest were obtained. HISTORY: Chest Pain COMPARISONS: 03/17/2018 FINDINGS: The lungs reveal stable diffuse interstitial fibrotic changes bilaterally with bullous changes in both upper lobes. The heart size is normal. There are no acute infiltrates or effusions. The skeletal structures do not show any acute changes. IMPRESSION: Stable diffuse interstitial fibrosis with bullous changes in the upper lobes. No acute infiltrates or effusions.. - Medical Decision Making Patient is a 52-year-old male that presents emergency room for shortness of breath, difficulty breathing and wheezing. Patient has asthma and sarcoidosis. Patient found to have increased work of breathing as well as hypoxia. Patient was given Solu-Medrol and magnesium and albuterol and patient improved slightly. Patient for admission for observation. Patient was admitted to the hospitalist service. No acute findings on chest x-ray. Labs unremarkable. - Differential Diagnosis status asthmaticus. Wheezing. sob. Respiratory distress Critical Care Time: Yes Critical care attestation.: If time is entered above; I have spent that time in minutes in the direct care of this critically ill patient, excluding procedure time. Critical Care Time: 45 minutes ED Disposition Clinical Impression: Hypoxia, Respiratory distress, SOB (shortness of breath) Status asthmaticus Qualifiers: Asthma severity: severe Asthma persistence: unspecified Qualified Code(s): J45.902 - Unspecified asthma with status asthmaticus Chest pain Qualifiers: Chest pain type: unspecified Qualified Code(s): R07.9 - Chest pain, unspecified Disposition: OP ADMIT IP TO THIS HOSP Is pt being admited?: Yes Does the pt Need Aspirin: No Condition: Critical Time of Disposition: 04:06
[2018-06-09] MEDS ORDERED: SODIUM CHLORIDE FLUSH SYRINGE 10 ML IV PRN (05:44)
[2018-06-09] MEDS ORDERED: TYLENOL PO PRN (05:44)
[2018-06-09] MEDS ORDERED: ZOFRAN IV PRN (05:44)
--- NOTE | 2018-06-09 06:35 | History and Physical Report ---
History of Present Illness Date of examination: 06/09/18 Date of admission: 06/09/18 06:01 History of present illness: 52-year-old man with history of asthma, sarcoidosis Comes emergency room with complaints of wheezing, shortness of breath not relieved with nebulized treatments, no cough . Complained of chest pain in the left she has patient describes a sharp, intermittent every 5 minutes, intensity 5/10, no radiation, chemotherapy and therefore exacerbating or relieving factors. No nausea or vomiting, palpitations or diaphoresis Review of systems Constitutional: no weight loss, chills, fever Ears, eyes, nose, mouth and throat: no nasal congestion, no nasal discharge, no sinus pressure, no vision change, no red eye. Neck: No neck pain or rigidity. Cardiovascular: no palpitations Respiratory: no cough, +shortness of breath Gastrointestinal: no abdominal pain Genitourinary : no frequency , no hematuria Musculoskeletal: no joint swelling or muscle ache Integumentary: no rash, no pruritis Neurological: no parathesias, no focal weakness Endocrine: no cold or heat intolerance, no polyuria or polydipsia Hematologic/Lymphatic: no easy bruising, no easy bleeding, no gland swelling Allergic/Immunologic: no urticaria, no angioedema. PAST MEDICAL HISTORY: Sarcoidosis, asthma PAST SURGICAL HISTORY: None SOCIAL HISTORY: Denies alcohol, tobacco, drugs FAMILY HISTORY: Hypertension Medications and Allergies Allergies Allergy/AdvReac Type Severity Reaction Status Date / Time No Known Allergies Allergy Verified 01/22/17 20:55 Home Medications Medication Instructions Recorded Confirmed Last Taken Type predniSONE [Prednisone] 5 mg PO DAILY #60 tablet 01/23/17 Unknown Rx Sulfamethoxazole/Trimethoprim 1 each PO BID #14 tablet 07/05/17 Unknown Rx [Bactrim DS TAB] ALBUTEROL NEB's [Proventil 0.083% 2.5 mg IH TID PRN #1 box 08/22/17 Unknown Rx NEBS] Prednisone [predniSONE 10 mg 10 mg PO .TAPER #1 tab.ds.pk 08/22/17 Unknown Rx (6-Day Pack, 21 Tabs)] Ibuprofen [Motrin 600 MG tab] 600 mg PO Q8H #30 tablet 09/25/17 Unknown Rx ALBUTEROL Inhaler (OR & NICU) 2 puff IH QID PRN #1 inhalation 12/18/17 Unknown Rx [ProAir HFA Inhaler] Benzonatate [Tessalon Perle] 100 mg PO TID #20 capsule 12/18/17 Unknown Rx predniSONE [Deltasone] 20 mg PO QDAY #7 tab 12/18/17 Unknown Rx Meloxicam 15 mg PO QDAY #10 tablet 03/17/18 Unknown Rx Prednisone [predniSONE (Aracely) ER 20 mg PO QDAY #30 tablet. 03/17/18 Unknown Rx TAB] Active Meds: Active Medications Acetaminophen (Tylenol) 650 mg PO Q4H PRN PRN Reason: Pain MILD(1-3)/Fever >100.5/ROYAL Albuterol/Ipratropium (Duoneb *Not For Prn Use*) 1 ampul IH Q6HRT CARLOS Enoxaparin Sodium (Lovenox) 40 mg SUB-Q QDAY@1000 CARLOS Methylprednisolone Sodium Succinate (Solu-Medrol) 125 mg IV Q6H CARLOS Ondansetron HCl (Zofran) 4 mg IV Q8H PRN PRN Reason: Nausea And Vomiting Sodium Chloride (Sodium Chloride Flush Syringe 10 Ml) 10 ml IV BID CARLOS Sodium Chloride (Sodium Chloride Flush Syringe 10 Ml) 10 ml IV PRN PRN PRN Reason: LINE FLUSH Exam - Physical Exam Narrative exam: Gen. appearance: Patient lying in bed, no apparent distress HEENT: Normocephalic, atraumatic, pupils equally round and reactive to light, extraocular movement intact, and no sclericterus,. No JVD or thyromegaly or nodule,neck supple, no carotid bruit ,mucous membranes moist, no exudate or erythema Heart: S1, S2, regular rate and rhythm Lungs: Wheezing bilaterally, breathing comfortable Abdomen: Positive bowel sounds, non-tender, nondistended, no organomegaly Extremity:no edema cyanosis, clubbing Skin: no rash, dry, warm Neuro: Oriented 3, cranial nerves II-12 intact, speech is fluent, motor and sensory intact - Constitutional Vitals: Temp Pulse Resp BP Pulse Ox 98.9 F 80 22 111/81 91 06/09/18 02:05 06/09/18 05:15 06/09/18 05:15 06/09/18 05:15 06/09/18 05:15 Results - Labs CBC & Chem 7: 06/08/18 23:45 06/08/18 23:45 Labs: Abnormal lab results 06/08/18 Range/Units 23:45 RBC 5.23 H (3.65-5.03) M/mm3 RDW 15.3 H (13.2-15.2) % Mayes % (Auto) 15.5 H (0.0-7.3) % Eos % (Auto) 6.1 H (0.0-4.3) % Mayes # 1.0 H (0.0-0.8) K/mm3 - Imaging and Cardiology EKG: report reviewed Chest x-ray: report reviewed Assessment and Plan Assessment Assessment Asthma exacerbation Sarcoidosis Chest pain Plan Check cardiac enzymes, stress test start steroids, breathing treatment DVT prophylaxis
[2018-06-09] MEDS: SOLU-Medrol IV SCH ×4 (08:31→21:33)
[2018-06-09] MEDS: DUONEB *Not for PRN Use IH SCH ×3 (08:52→19:50)
[2018-06-09] MEDS: SODIUM CHLORIDE FLUSH SYRINGE 10 ML IV SCH ×2 (09:56→21:34)
[2018-06-09] MEDS: LOVENOX SUB-Q SCH (09:56)
[2018-06-09] MEDS ORDERED: LOVENOX SUB-Q SCH (10:00)
--- NOTE | 2018-06-09 13:00 | Event Note ---
Date: 06/09/18 Patient 51-year-old history of asthma, sarcoidosis presents with shortness of breath and wheezing. Had left-sided chest pain. Was brought in and admitted today. After short-term patient feels much better. Breathing better. Cardiac isoenzymes are been negative. Chest x-ray is consistent with fibrosis. Still has stress test pending. Patient should be stable to be discharged on a 2 days. Clinically. His decompensation was secondary to not being able to obtain Steroids and adequate care.
[2018-06-10] MEDS: SOLU-Medrol IV SCH ×4 (01:01→23:33)
[2018-06-10] MEDS: DUONEB *Not for PRN Use IH SCH ×4 (01:38→20:59)
[2018-06-10 06:35] LABS: Hematocrit 40.5 % (35.5-45.6); Hemoglobin 13.1 gm/dl (11.8-15.2); Mean Corpuscular HGB Conc 33 % (32-34); Mean Corpuscular Volume 85 fl (84-94); Platelet Count 231 K/mm3 (140-440); Red Blood Count 4.76 M/mm3 (3.65-5.03); Red Cell Distribution Width 14.5 % (13.2-15.2)
[2018-06-10 06:36] LABS: Basophils % (Auto) 0.1 % (0.0-1.8); Lymphocytes # (Auto) 1.1 K/mm3 (1.2-5.4); Lymphocytes % (Auto) 9.7 % (13.4-35.0); Monocytes # (Auto) 0.5 K/mm3 (0.0-0.8); Monocytes % (Auto) 3.9 % (0.0-7.3)
[2018-06-10 06:41] LABS: BUN/Creatinine Ratio 17; Blood Urea Nitrogen 15 mg/dL (9-20); Calcium 8.7 mg/dL (8.4-10.2); Hemolysis Index 8
[2018-06-10] MEDS ORDERED: LEXISCAN IV ONE (08:20)
[2018-06-10] MEDS: SODIUM CHLORIDE FLUSH SYRINGE 10 ML IV SCH ×2 (12:36→23:37)
[2018-06-10] MEDS: LOVENOX SUB-Q SCH (12:37)
--- NOTE | 2018-06-10 13:36 | Progress Note ---
Assessment and Plan Acute Asthma exacerbation Sarcoidosis, h/o Chest pain, r/o ACS Plan negative cardiac enzymes, s/p stress test today cont steroids, breathing treatment with nebs, supplemental O2 as needed DVT prophylaxis possible d/c in the am Brief History: 52-year-old man with history of asthma, sarcoidosis Comes emergency room with complaints of wheezing, shortness of breath not relieved with nebulized treatments, Radiological data: CXR Stress test Hospitalist Physical exam: GENERAL: well-developed and well-nourished male lying on bed appeared to be in no discomfort. HEENT: Normocephalic. Atraumatic. No conjunctival congestion or icterus. Patient has moist mucous membranes. NECK: Supple. Trachea midline. CHEST/LUNGS: few wheezes auscultated bilaterally, breathing nonlabored. HEART/CARDIOVASCULAR: Regular in rate and rhythm. S1 and S2 positive. ABDOMEN: Abdomen is soft, nontender. Patient has normal bowel sounds. SKIN: There is no rash. Warm and dry. NEURO: No focal motor deficit. Follows command. MUSCULOSKELETAL: No joint effusion or tenderness. EXTRIMITY: No edema, no cyanosis or clubbing. PSYCH: Cooperative. Subjective Date of service: 06/10/18 Interval history: patient seen and examined breathing improved, little SOB on ambulation had stress test today, denies chest pain Objective - Constitutional Vitals: Vital Signs - 12hr 06/10/18 06/10/18 06/10/18 01:39 01:47 02:00 Temperature Pulse Rate Pulse Rate [ 99 H 97 H Anterior Bilateral Throughout] Respiratory 18 Rate Respiratory 18 18 Rate [Anterior Bilateral Throughout] Blood Pressure O2 Sat by Pulse Oximetry 06/10/18 06/10/18 06/10/18 05:07 07:33 07:43 Temperature 97.6 F Pulse Rate 92 H Pulse Rate [ 89 96 H Anterior Bilateral Throughout] Respiratory 28 H Rate Respiratory 20 20 Rate [Anterior Bilateral Throughout] Blood Pressure 114/63 O2 Sat by Pulse 94 94 Oximetry 06/10/18 06/10/18 06/10/18 11:29 11:31 11:40 Temperature Pulse Rate Pulse Rate [ Anterior Bilateral Throughout] Respiratory Rate Respiratory Rate [Anterior Bilateral Throughout] Blood Pressure 113/64 103/67 98/67 O2 Sat by Pulse Oximetry 06/10/18 06/10/18 06/10/18 11:42 11:43 11:44 Temperature Pulse Rate Pulse Rate [ Anterior Bilateral Throughout] Respiratory Rate Respiratory Rate [Anterior Bilateral Throughout] Blood Pressure 107/66 101/63 106/58 O2 Sat by Pulse Oximetry 06/10/18 06/10/18 06/10/18 11:45 11:47 11:48 Temperature Pulse Rate Pulse Rate [ Anterior Bilateral Throughout] Respiratory Rate Respiratory Rate [Anterior Bilateral Throughout] Blood Pressure 99/64 107/65 101/67 O2 Sat by Pulse Oximetry - Labs CBC & Chem 7: 06/10/18 05:33 06/10/18 05:33 Labs: Abnormal lab results 06/10/18 06/10/18 Range/Units 05:33 05:33 WBC 11.7 H (4.5-11.0) K/mm3 Lymph % (Auto) 9.7 L (13.4-35.0) % Lymph # 1.1 L (1.2-5.4) K/mm3 Seg Neutrophils % 86.3 H (40.0-70.0) % Seg Neutrophils # 10.1 H (1.8-7.7) K/mm3 Glucose 169 H (75-100) mg/dL
--- NOTE | 2018-06-10 17:52 | Event Note ---
Date: 06/10/18 [facility] thallium stress test was normal.
--- NOTE | 2018-06-11 01:45 | Treadmill Report ---
THALLIUM STRESS TEST LEFT VENTRICLE: Left ventricular chamber size is within normal spread. Perfusion study demonstrates homogeneous uptake of the tracer in all segments. No significant defects identified. Gated analysis demonstrates normal left ventricular systolic function, ejection fraction greater than 74%. CONCLUSION: Normal myocardial perfusion study. JOB# [id number] CA/NTS
[2018-06-11] MEDS: DUONEB *Not for PRN Use IH SCH ×4 (02:10→19:18)
[2018-06-11] MEDS: SOLU-Medrol IV SCH ×3 (03:33→17:03)
[2018-06-11] MEDS: LOVENOX SUB-Q SCH (10:13)
[2018-06-11] MEDS: SODIUM CHLORIDE FLUSH SYRINGE 10 ML IV SCH (10:14)
[2018-06-11 12:35] VITALS: BP 107/69
--- NOTE | 2018-06-11 12:58 | Discharge Summary ---
Providers - Providers Date of Admission: 06/09/18 06:01 Date of discharge: 06/11/18 Attending physician: MARGO MAURER 06/09/18 17:56 Consult to Case Management [CONS] Routine Services Needed at Discharge: [employer] Notified:: needs info about advance directive [facility] Condition: Critical Hospital course: Brief History: 52-year-old man with history of asthma, sarcoidosis Comes emergency room with complaints of wheezing, shortness of breath not relieved with nebulized treatments, at home. He noted to have negative cardiac enzymes, s/p stress test which was normal. Treated with steroids, breathing treatment with nebs, supplemental O2 as needed for asthma exacerbation. His symptom improved and was discharged home in stable condition. Discharge diagnosis: Acute Asthma exacerbation, resolved Sarcoidosis, h/o Chest pain, ruled out ACS, likely GERD Radiological data: CXR Stress test Hospitalist Physical exam: GENERAL: well-developed and well-nourished male lying on bed appeared to be in no discomfort. HEENT: Normocephalic. Atraumatic. No conjunctival congestion or icterus. Patient has moist mucous membranes. NECK: Supple. Trachea midline. CHEST/LUNGS: no wheezes auscultated bilaterally, breathing nonlabored. HEART/CARDIOVASCULAR: Regular in rate and rhythm. S1 and S2 positive. ABDOMEN: Abdomen is soft, nontender. Patient has normal bowel sounds. SKIN: There is no rash. Warm and dry. NEURO: No focal motor deficit. Follows command. MUSCULOSKELETAL: No joint effusion or tenderness. EXTRIMITY: No edema, no cyanosis or clubbing. PSYCH: Cooperative. Disposition: - TO HOME OR SELFCARE Time spent for discharge: 34 minutes Core Measure Documentation - Palliative Care Palliative Care/ Comfort Measures: Not Applicable - Core Measures Any of the following diagnoses?: none Exam - Constitutional Vitals: Temp Pulse Resp BP Pulse Ox 98.0 F 87 20 107/69 91 06/11/18 12:34 06/11/18 12:34 06/11/18 12:34 06/11/18 12:34 06/11/18 12:34 Plan Activity: advance as tolerated Weight Bearing Status: Weight Bear as Tolerated Diet: low fat Follow up with: JEANETTE BELL MD [Primary Care Provider] - 3-5 Days SOLIS MALAGON MD [Staff Physician] - 7 Days Prescriptions: predniSONE [Deltasone] 20 mg PO QDAY #7 tab ALBUTEROL Inhaler (OR & NICU) [ProAir HFA Inhaler] 2 puff IH QID PRN 30 Days #1 inhalation PRN Reason: Shortness Of Breath Pantoprazole [Protonix] 40 mg PO QDAY #30 tablet ALBUTEROL NEB's [Proventil 0.083% NEBS] 2.5 mg IH TID PRN #1 box PRN Reason: Wheezing Budesoni/Formoterol 80-4.5(Nf) [Symbicort 80-4.5 (Nf)] 2 puff IH BID 30 Days inha
== END 2018-06-11 19:45 | disposition home or self-care (01) | DRG 392 ==
LOC: ED 22:08 → 3A 06-09 06:01
PROVIDERS: ADMIT Internal Medicine; ATTEND Internal Medicine
DX: K21.9 Gastro-esophageal reflux disease without esophagitis (principal); J45.902 Unspecified asthma with status asthmaticus; D86.9 Sarcoidosis, unspecified; Z82.49 Family history of ischemic heart disease and other diseases of the circulatory system; Z79.899 Other long term (current) drug therapy
CPT/HCPCS: 36415; 71046; 78452; 80048; 84484; 85025; 93005; 93010; 93017; 94640; 94760; 96365; 96375; G0378; A9502; J1650; J2785; J2930; J3475

== ENCOUNTER 2019-04-25 09:36 | Emergency (ER) | payer SELFPAY ==
[2019-04-25] MEDS ORDERED: ASPIRIN 325 MG TAB PO ONE (09:41)
--- NOTE | 2019-04-25 09:56 | Event Note ---
Date: 04/25/19 Triage EKG handed to me at 9:50 AM. It shows a rate of 77 bpm, perhaps ectopic atrial rhythm, with a left axis deviation, what appears to be ST elevation in lead I, right bundle branch block, and borderline left ventricular hypertrophy. Her the EKG today to my interpretation appears to be unchanged from prior EKG from May 2018. It is also transmitted to our geospatial technician on- call, Dr. Mcpherson, who advises that the EKG today does not meet criteria for activation of the cardiac catheterization lab.
--- NOTE | 2019-04-25 10:12 | XRay Report ---
CHEST 1 VIEW INDICATION / CLINICAL INFORMATION: Chest Pain. COMPARISON: 06/08/2018 FINDINGS: SUPPORT DEVICES: None. HEART / MEDIASTINUM: No significant abnormality. LUNGS / PLEURA: Severe interstitial fibrosis. No superimposed acute disease or change. No pneumothora x. ADDITIONAL FINDINGS: No significant additional findings. IMPRESSION: 1. Interstitial fibrosis is stable with no acute process. Signer Name: Charles Gillespie MD Signed: 04/25/2019 10:07 AM Workstation Name: [id number]
[2019-04-25 10:35] LABS: Basophils # (Auto) 0.1 K/mm3 (0.0-0.1); Eosinophils # (Auto) 0.3 K/mm3 (0.0-0.4); Eosinophils % (Auto) 4.1 % (0.0-4.3); Hemoglobin 14.5 gm/dl (11.8-15.2); Lymphocytes # (Auto) 2.3 K/mm3 (1.2-5.4); Lymphocytes % (Auto) 33.6 % (13.4-35.0); Mean Corpuscular HGB Conc 32 % (32-34); Mean Corpuscular Volume 86 fl (84-94); Monocytes # (Auto) 0.7 K/mm3 (0.0-0.8); Monocytes % (Auto) 10.8 % (0.0-7.3); Platelet Count 226 K/mm3 (140-440); Red Blood Count 5.22 M/mm3 (3.65-5.03); Red Cell Distribution Width 14.6 % (13.2-15.2)
[2019-04-25 10:57] LABS: BUN/Creatinine Ratio 9; Blood Urea Nitrogen 10 mg/dL (9-20); Calcium 8.6 mg/dL (8.4-10.2); Hemolysis Index 5
--- NOTE | 2019-04-25 11:06 | Emergency Department Report ---
ED General Adult HPI - General Chief complaint: Chest Pain Stated complaint: CP/SOB/FEVER Time Seen by Provider: 04/25/19 10:44 Source: patient, RN notes reviewed, old records reviewed Mode of arrival: Ambulatory Limitations: No Limitations - History of Present Illness Initial comments: The patient is a 53-year-old gentleman. He is not known to myself previously. He has a history of sarcoidosis. He was admitted to this hospital last year, for chest pain, and had a negative nuclear cardiac stress test, and multiple negative troponins. The patient works in the cleaning industry in a warehouse, and has been having issues with coughing and sneezing. He is not having chest pain or shortness of breath. He denies fever, sick contacts, travel outside the country, and to the best of his knowledge, he has not had a confirmed exposure to the covid 19 virus He is presenting to the emergency room mostly for clearance to return to work. He reports that his employer was concerned about nasal congestion, coughing and sneezing, and stated "I want to make sure that I do not have the flu." He also wants to make sure that he "does not have that bug that is going around." He denies headache, neck pain, chest pain, abdominal pain, muscle aches, fevers and chills. He has chronic cough, at the moment, he does not have exertional shortness of breath. He denies tobacco use and smoke products use -: Gradual Consistency: intermittent Improves with: none Worsens with: none - Related Data Previous Rx's Medication Instructions Recorded Last Taken Type predniSONE [Prednisone] 5 mg PO DAILY #60 tablet 01/23/17 Unknown Rx Prednisone [predniSONE 10 mg 10 mg PO .TAPER #1 tab.ds.pk 08/22/17 Unknown Rx (6-Day Pack, 21 Tabs)] Ibuprofen [Motrin 600 MG tab] 600 mg PO Q8H #30 tablet 09/25/17 Unknown Rx Benzonatate [Tessalon Perle] 100 mg PO TID #20 capsule 12/18/17 Unknown Rx Meloxicam 15 mg PO QDAY #10 tablet 03/17/18 Unknown Rx Prednisone [predniSONE (Aracely) ER 20 mg PO QDAY #30 tablet. 03/17/18 Unknown Rx TAB] ALBUTEROL NEB's [Proventil 0.083% 2.5 mg IH TID PRN #1 box 06/11/18 Unknown Rx NEBS] Budesoni/Formoterol 80-4.5(Nf) 2 puff IH BID 30 Days inha 06/11/18 Unknown Rx [Symbicort 80-4.5 (Nf)] Pantoprazole [Protonix] 40 mg PO QDAY #30 tablet 06/11/18 Unknown Rx predniSONE [Deltasone] 20 mg PO QDAY #7 tab 06/11/18 Unknown Rx Albuterol INH(or & Nicu Only) 2 puff IH QID PRN 30 Days #1 04/25/19 Unknown Rx [ProAir HFA Inhaler] inhalation Budesonide/Formoterol Fumarate 10.2 gm IH BID #1 hfa.aer.ad 04/25/19 Unknown Rx [Symbicort 80-4.5 Mcg Inhaler] Prednisone [predniSONE (Aracely) ER 5 mg PO QDAY #30 tablet. 04/25/19 Unknown Rx TAB] Allergies Allergy/AdvReac Type Severity Reaction Status Date / Time No Known Allergies Allergy Verified 01/22/17 20:55 ED Review of Systems ROS: Stated complaint: CP/SOB/FEVER Other details as noted in HPI Constitutional: denies: fever ENT: congestion Respiratory: denies: wheezing Cardiovascular: denies: chest pain Gastrointestinal: denies: abdominal pain Genitourinary: denies: dysuria Musculoskeletal: denies: arthralgia Skin: denies: lesions Neurological: denies: weakness Psychiatric: as per HPI Hematological/Lymphatic: as per HPI ED Past Medical Hx - Past Medical History Previous Medical History?: Yes Hx Congestive Heart Failure: No Hx Diabetes: No Hx Asthma: Yes Hx COPD: No Additional medical history: sarcoidosis, Bronchitis, ASTHMA - Surgical History Past Surgical History?: Yes - Social History Smoking Status: Never Smoker Substance Use Type: None - Medications Home Medications: Home Medications Medication Instructions Recorded Confirmed Last Taken Type predniSONE [Prednisone] 5 mg PO DAILY #60 tablet 01/23/17 Unknown Rx Prednisone [predniSONE 10 mg 10 mg PO .TAPER #1 tab.ds.pk 08/22/17 Unknown Rx (6-Day Pack, 21 Tabs)] Ibuprofen [Motrin 600 MG tab] 600 mg PO Q8H #30 tablet 09/25/17 Unknown Rx Benzonatate [Tessalon Perle] 100 mg PO TID #20 capsule 11/06/18 Unknown Rx Meloxicam 15 mg PO QDAY #10 tablet 03/17/18 Unknown Rx Prednisone [predniSONE (Aracely) ER 20 mg PO QDAY #30 tablet. 03/17/18 Unknown Rx TAB] ALBUTEROL NEB's [Proventil 0.083% 2.5 mg IH TID PRN #1 box 06/11/18 Unknown Rx NEBS] Budesoni/Formoterol 80-4.5(Nf) 2 puff IH BID 30 Days inha 06/11/18 Unknown Rx [Symbicort 80-4.5 (Nf)] Pantoprazole [Protonix] 40 mg PO QDAY #30 tablet 06/11/18 Unknown Rx predniSONE [Deltasone] 20 mg PO QDAY #7 tab 06/11/18 Unknown Rx Albuterol INH(or & Nicu Only) 2 puff IH QID PRN 30 Days #1 04/25/19 Unknown Rx [ProAir HFA Inhaler] inhalation Budesonide/Formoterol Fumarate 10.2 gm IH BID #1 hfa.aer.ad 04/25/19 Unknown Rx [Symbicort 80-4.5 Mcg Inhaler] Prednisone [predniSONE (Aracely) ER 5 mg PO QDAY #30 tablet. 04/25/19 Unknown Rx TAB] ED Physical Exam - General Limitations: No Limitations General appearance: alert, in no apparent distress - Head Head exam: Present: atraumatic, normocephalic - Eye Eye exam: Present: normal appearance, EOMI. Absent: nystagmus - ENT ENT exam: Present: normal exam, normal orophraynx, mucous membranes moist, normal external ear exam - Neck Neck exam: Present: normal inspection, full ROM. Absent: tenderness, meningismus - Respiratory Respiratory exam: Present: decreased breath sounds. Absent: respiratory distress, wheezes, rales, rhonchi, stridor - Cardiovascular Cardiovascular Exam: Present: regular rate, normal rhythm, normal heart sounds. Absent: bradycardia, tachycardia, irregular rhythm, systolic murmur, diastolic murmur, rubs, gallop - GI/Abdominal GI/Abdominal exam: Present: soft. Absent: distended, tenderness, guarding, rebound, rigid, pulsatile mass - Rectal Rectal exam: Present: deferred - Extremities Exam Extremities exam: Present: normal inspection, full ROM, other (2+ pulses noted in the bilateral upper and lower extremities. There is no palpable cord. negative Homans sign. Muscular compartments are soft. The pelvis is stable.). Absent: pedal edema, calf tenderness - Back Exam Back exam: Present: normal inspection, full ROM. Absent: tenderness, CVA tenderness (R), CVA tenderness (L), paraspinal tenderness, vertebral tenderness - Neurological Exam Neurological exam: Present: alert, oriented X3, normal gait, other (There is no facial droop. The tongue is midline. Extraocular movements are intact bilaterally. There is 5 out of 5 strength in bilateral upper and lower extremities. Sensation is intact to light touch bilateral upper and lower extremities. There is a normal gait.). Absent: motor sensory deficit - Psychiatric Psychiatric exam: Present: anxious - Skin Skin exam: Present: warm, dry, intact, normal color. Absent: rash ED Medical Decision Making - Lab Data Result diagrams: 04/25/19 10:22 04/25/19 10:22 Vital Signs 04/25/19 09:41 Temperature 97.5 F L Pulse Rate 85 Respiratory 20 Rate Blood Pressure 108/71 O2 Sat by Pulse 98 Oximetry Lab Results 04/25/19 04/25/19 Range/Units 10:22 10:22 WBC 6.8 (4.5-11.0) K/mm3 RBC 5.22 H (3.65-5.03) M/mm3 Hgb 14.5 (11.8-15.2) gm/dl Hct 45.0 (35.5-45.6) % MCV 86 (84-94) fl MCH 28 (28-32) pg MCHC 32 (32-34) % RDW 14.6 (13.2-15.2) % Plt Count 226 (140-440) K/mm3 Lymph % (Auto) 33.6 (13.4-35.0) % [place] % (Auto) 10.8 H (0.0-7.3) % Eos % (Auto) 4.1 (0.0-4.3) % Baso % (Auto) 1.0 (0.0-1.8) % Lymph # 2.3 (1.2-5.4) K/mm3 [place] # 0.7 (0.0-0.8) K/mm3 Eos # 0.3 (0.0-0.4) K/mm3 Baso # 0.1 (0.0-0.1) K/mm3 Seg Neutrophils % 50.5 (40.0-70.0) % Seg Neutrophils # 3.4 (1.8-7.7) K/mm3 Sodium 141 (137-145) mmol/L Potassium 4.2 (3.6-5.0) mmol/L Chloride 104.5 (98-107) mmol/L Carbon Dioxide 25 (22-30) mmol/L Anion Gap 16 mmol/L BUN 10 (9-20) mg/dL Creatinine 1.1 (0.8-1.5) mg/dL Estimated GFR > 60 ml/min BUN/Creatinine Ratio 9 % Glucose 76 (75-100) mg/dL Calcium 8.6 (8.4-10.2) mg/dL Troponin T < 0.010 (0.00-0.029) ng/mL - EKG Data -: EKG Interpreted by La EKG shows normal: sinus rhythm Rate: normal - EKG Data When compared to previous EKG there are: no significant change 04/25/19 11:04 Today's EKG does show a sinus rhythm, with a left axis deviation, question ectopic atrial rhythm, borderline left anterior fascicular block, ST elevation in lead I, T wave inversion aVL, right bundle branch block, the EKG is abnormal, it is unchanged from prior, it is not consistent with ST elevation myocardial infarction. - Radiology Data Radiology results: report reviewed, image reviewed Print Report Referring Physician: CHAUNCEY SPAULDING Patient Name: SPRING YIP Date of : 1965 Sex: Male Report Date: 2019-04-25 Report Status: Finalized Findings [facility] [address] [place] [address] XRay Report Signed Patient: SPRING YIP MR#: [id number] : 1965 A cct:[id number] Age/Sex: 53 / M ADM Date: 04/25/19 Loc: ED Attending Dr: Ordering Physician: CHAUNCEY SPAULDING MD Date of Service: 04/25/19 Procedure(s): XR chest 1V ap Accession Number(s): [id number] cc: CHAUNCEY SPAULDING MD Fluoro Time In Minutes: CHEST 1 VIEW INDICATION / CLINICAL INFORMATION: Chest Pain. COMPARISON: 06/08/2018 FINDINGS: SUPPORT DEVICES: None. HEART / MEDIASTINUM: No significant abnormality. LUNGS / PLEURA: Severe interstitial fibrosis. No superimposed acute disease or change. No pneumothorax. ADDITIONAL FINDINGS: No significant additional findings. IMPRESSION: 1. Interstitial fibrosis is stable with no acute process. Signer Name: Charles Gillespie MD Signed: 04/25/2019 10:07 AM Workstation Name: [id number] Transcribed By: PIERRE Dictated By: Charles Gillespie MD Electronically Authenticated By: Charles Gillespie MD Signed Date/Time: 04/25/19 1007 DD/ 1006 TD/TT: - Medical Decision Making Differential diagnosis, including but limited to: General medical evaluation, chronic fibrosis/sarcoidosis, viral syndrome, medical clearance Assessment and plan: 53-year-old gentleman with nasal congestion, history of cough and sneezing, without chest pain or new shortness of breath. He is afebrile with reassuring vital signs, with no reported pulmonary embolism or DVT risk factors, and he is low risk by Wells criteria. Please note that laboratory studies and EKG were obtained prior to my personal evaluation of the patient. Based off of the history and physical, the patient in my pain does not require a cardiac re-stratification. I find him to be low risk by heart score, and he had a negative nuclear stress test last year. Reassurance is provided to the patient. At the moment, we do not have suspicion about the current covid virus He did ask for refills on his prednisone, albuterol and Symbicort. Secondary to change in insurance policy, he will be referred to local outpatient pulmonology specialist. We discussed the importance of hand hygiene, washing with soap and water, and diligently avoiding contact to hands, face, eyes and mouth. He verbalized understanding Critical care attestation.: If time is entered above; I have spent that time in minutes in the direct care of this critically ill patient, excluding procedure time. ED Disposition Clinical Impression: General medical exam, History of sarcoidosis Disposition: - TO HOME OR SELFCARE Is pt being admited?: No Does the pt Need Aspirin: No Condition: Stable Additional Instructions: Take the prescribed medications as needed and directed. Remember to wash hands with soap and water thoroughly, and often. Avoid touching hands to face, eyes and mouth. Avoid consumption of tobacco, smoke products and secondhand smoke exposure. At the moment, the patient does not have an immediate medical contraindication or reason that would prevent him from returning to work. His symptoms at the moment are not consistent with influenza, or other covid 19 virus We recommend that the patient follow-up with a primary care doctor or pulmonology/lung specialist within the next 3 to 4 weeks. For the patient's convenience, local pulmonology specialists have been listed. The patient may follow-up with any of the local listed specialist. Please return to the emergency room right away with new, worsened or different symptoms, or symptoms not present on the initial emergency room evaluation. Referrals: SHANE BOYD MD [Staff Physician] - 3-5 Days WILSON HI MD [Staff Physician] - 3-5 Days LORE WYATT MD [Staff Physician] - 3-5 Days ZULEYMA HERNANDEZ MD [Staff Physician] - 3-5 Days
[2019-04-25 11:23] VITALS: BP 110/70
== END 2019-04-25 11:21 | disposition home or self-care (01) ==
LOC: ED 09:36
DX: Z00.00 Encounter for general adult medical examination without abnormal findings (principal); D86.89 Sarcoidosis of other sites; J45.909 Unspecified asthma, uncomplicated; Z79.899 Other long term (current) drug therapy
CPT/HCPCS: 36415; 71045; 80048; 84484; 85025; 93005; 93010

== ENCOUNTER 2019-09-25 18:30 | Emergency (ER) | payer SELFPAY ==
[2019-09-25] MEDS ORDERED: ASPIRIN 325 MG TAB PO ONE (18:43)
--- NOTE | 2019-09-25 19:24 | XRay Report ---
CHEST 2 VIEWS INDICATION / CLINICAL INFORMATION: Chest pain, shortness of breath. COMPARISON: 04/25/2019 FINDINGS: SUPPORT DEVICES: None. HEART / MEDIASTINUM: No significant abnormality. LUNGS / PLEURA: Interstitial/fibrotic changes are again noted in both lungs with retraction of the hi la superiorly. No superimposed acute pulmonary or pleural findings. No pneumothorax. ADDITIONAL FINDINGS: No significant additional findings. IMPRESSION: 1. No acute findings. Signer Name: Washington Artis MD Signed: 09/25/2019 7:20 PM Workstation Name: [id number]
[2019-09-25 19:59] LABS: Hemoglobin 15.5 gm/dl (11.8-15.2); Mean Corpuscular HGB Conc 32 % (32-34); Mean Corpuscular Volume 88 fl (84-94); Platelet Count 267 K/mm3 (140-440); Red Blood Count 5.59 M/mm3 (3.65-5.03); Red Cell Distribution Width 13.9 % (13.2-15.2)
[2019-09-25 20:11] LABS: BUN/Creatinine Ratio 8; Blood Urea Nitrogen 10 mg/dL (9-20); Calcium 9.6 mg/dL (8.4-10.2); Hemolysis Index 3
[2019-09-25 21:05] LABS: Basophils % (Manual) 0 % (0.0-1.8); Eosinophils % (Manual) 0 % (0.0-4.3); Total Cells Counted 100
[2019-09-25 21:06] LABS: RBC Morphology Normal
[2019-09-26] MEDS ORDERED: ALBUTEROL 2.5 MG/3 ML NEBU IH ONE ×2 (00:07→02:12)
[2019-09-26] MEDS ORDERED: methylPREDNISolone Sod Succinate 125 MG/2 ML INJ IM ONE (00:07)
[2019-09-26] MEDS ORDERED: IPRATROPIUM 0.02% NEBU 2.5 ML IH ONE ×2 (00:07→02:12)
--- NOTE | 2019-09-26 00:12 | Emergency Department Report ---
ED Shortness of Breath HPI - General Chief Complaint: Chest Pain Stated Complaint: CP/SOB Time Seen by Provider: 09/25/19 23:26 Source: patient Mode of arrival: Ambulatory Limitations: No Limitations - History of Present Illness Initial Comments: Mr. Argueta is a 54 years old male with history of sarcoidosis. Patient presented to the ER complaining of shortness of breath, wheezing and chest pain. Patient describes his chest pain as sharp and came when he started coughing. Patient stated that his chest pain is typical to his prior symptoms when he have flareup. Patient stated that his nebulizer machine is not working and he ran out of his prednisone. Patient stated that he is taking prednisone 10 mg daily. Patient denied any fever or chills. No nausea or vomiting. MD Complaint: shortness of breath, cough, chest pain -: days(s) (2) - Related Data Previous Rx's Medication Instructions Recorded Last Taken Type predniSONE [Prednisone] 5 mg PO DAILY #60 tablet 01/23/17 Unknown Rx Prednisone [predniSONE 10 mg 10 mg PO .TAPER #1 tab.ds.pk 08/22/17 Unknown Rx (6-Day Pack, 21 Tabs)] Ibuprofen [Motrin 600 MG tab] 600 mg PO Q8H #30 tablet 09/25/17 Unknown Rx Benzonatate [Tessalon Perle] 100 mg PO TID #20 capsule 12/18/17 Unknown Rx Meloxicam 15 mg PO QDAY #10 tablet 03/17/18 Unknown Rx Prednisone [predniSONE (Aracely) ER 20 mg PO QDAY #30 tablet. 03/17/18 Unknown Rx TAB] ALBUTEROL NEB's [Proventil 0.083% 2.5 mg IH TID PRN #1 box 06/11/18 Unknown Rx NEBS] Budesoni/Formoterol 80-4.5(Nf) 2 puff IH BID 30 Days inha 06/11/18 Unknown Rx [Symbicort 80-4.5 (Nf)] Pantoprazole [Protonix] 40 mg PO QDAY #30 tablet 06/11/18 Unknown Rx predniSONE [Deltasone] 20 mg PO QDAY #7 tab 06/11/18 Unknown Rx Albuterol Mdi (or & Nicu Only) 2 puff IH QID PRN 30 Days #1 04/25/19 Unknown Rx [ProAir HFA Inhaler] inhalation Budesonide/Formoterol Fumarate 10.2 gm IH BID #1 hfa.aer.ad 04/25/19 Unknown Rx [Symbicort 80-4.5 Mcg Inhaler] Prednisone [predniSONE (Aracely) ER 5 mg PO QDAY #30 tablet. 04/25/19 Unknown Rx TAB] Allergies Allergy/AdvReac Type Severity Reaction Status Date / Time No Known Allergies Allergy Verified 01/22/17 20:55 ED Review of Systems ROS: Stated complaint: CP/SOB Other details as noted in HPI Comment: All other systems reviewed and negative Constitutional: denies: chills, fever Respiratory: shortness of breath, wheezing. denies: SOB with exertion Cardiovascular: chest pain Gastrointestinal: denies: abdominal pain, nausea, vomiting Musculoskeletal: denies: back pain Neurological: denies: headache, weakness, numbness, paresthesias, confusion ED Past Medical Hx - Past Medical History Previous Medical History?: Yes Hx Congestive Heart Failure: No Hx Diabetes: No Hx Asthma: Yes Hx COPD: No Additional medical history: sarcoidosis, Bronchitis, ASTHMA - Surgical History Past Surgical History?: No - Social History Smoking Status: Never Smoker Substance Use Type: None - Medications Home Medications: Home Medications Medication Instructions Recorded Confirmed Last Taken Type predniSONE [Prednisone] 5 mg PO DAILY #60 tablet 01/23/17 Unknown Rx Prednisone [predniSONE 10 mg 10 mg PO .TAPER #1 tab.ds.pk 08/22/17 Unknown Rx (6-Day Pack, 21 Tabs)] Ibuprofen [Motrin 600 MG tab] 600 mg PO Q8H #30 tablet 09/25/17 Unknown Rx Benzonatate [Tessalon Perle] 100 mg PO TID #20 capsule 12/18/17 Unknown Rx Meloxicam 15 mg PO QDAY #10 tablet 03/17/18 Unknown Rx Prednisone [predniSONE (Aracely) ER 20 mg PO QDAY #30 tablet. 03/17/18 Unknown Rx TAB] ALBUTEROL NEB's [Proventil 0.083% 2.5 mg IH TID PRN #1 box 06/11/18 Unknown Rx NEBS] Budesoni/Formoterol 80-4.5(Nf) 2 puff IH BID 30 Days inha 06/11/18 Unknown Rx [Symbicort 80-4.5 (Nf)] Pantoprazole [Protonix] 40 mg PO QDAY #30 tablet 06/11/18 Unknown Rx predniSONE [Deltasone] 20 mg PO QDAY #7 tab 06/11/18 Unknown Rx Albuterol Mdi (or & Nicu Only) 2 puff IH QID PRN 30 Days #1 04/25/19 Unknown Rx [ProAir HFA Inhaler] inhalation Budesonide/Formoterol Fumarate 10.2 gm IH BID #1 hfa.aer.ad 04/25/19 Unknown Rx [Symbicort 80-4.5 Mcg Inhaler] Prednisone [predniSONE (Aracely) ER 5 mg PO QDAY #30 tablet. 04/25/19 Unknown Rx TAB] ED Physical Exam - General Limitations: No Limitations General appearance: alert, in no apparent distress - Head Head exam: Present: atraumatic, normocephalic, normal inspection - Eye Eye exam: Present: normal appearance - ENT ENT exam: Present: normal exam, normal orophraynx, mucous membranes moist - Neck Neck exam: Present: normal inspection, full ROM. Absent: tenderness, meningismus - Respiratory Respiratory exam: Present: respiratory distress, wheezes. Absent: rales, rhonchi, accessory muscle use, decreased breath sounds, prolonged expiratory - Cardiovascular Cardiovascular Exam: Present: regular rate, normal rhythm, normal heart sounds - GI/Abdominal GI/Abdominal exam: Present: soft, normal bowel sounds. Absent: distended, tenderness, guarding, rebound, rigid, organomegaly, mass, bruit, pulsatile mass, hernia - Extremities Exam Extremities exam: Present: normal inspection, full ROM, normal capillary refill. Absent: pedal edema, calf tenderness - Back Exam Back exam: Present: normal inspection, full ROM. Absent: CVA tenderness (R), CVA tenderness (L) - Neurological Exam Neurological exam: Present: alert, oriented X3, CN II-XII intact - Psychiatric Psychiatric exam: Present: normal mood - Skin Skin exam: Present: warm, intact, normal color ED Course Vital Signs 09/25/19 18:40 Temperature 98 F Pulse Rate 82 Respiratory 16 Rate Blood Pressure 129/89 O2 Sat by Pulse 100 Oximetry ED Medical Decision Making - Lab Data Result diagrams: 09/25/19 19:30 09/25/19 19:30 - EKG Data -: EKG Interpreted by Id EKG shows normal: sinus rhythm Rate: normal - EKG Data Interpretation: no acute changes - Radiology Data Radiology results: report reviewed - Medical Decision Making Mr. Argueta is a 54 years old male with history of sarcoidosis. Patient presented to the ER complaining of shortness of breath, wheezing and chest pain. Patient describes his chest pain as sharp and came when he started coughing. Patient stated that his chest pain is typical to his prior symptoms when he have flareup. Patient stated that his nebulizer machine is not working and he ran out of his prednisone. Patient stated that he is taking prednisone 10 mg daily. Patient denied any fever or chills. No nausea or vomiting. EKG is unremarkable. Chest x-ray is negative for acute finding. Labs reviewed and is unremarkable including a negative troponin. Patient chest pain is atypical in nature. Patient received albuterol, Atrovent and Solu-Medrol with significant improvement in his symptoms. Patient given prescription for his nebulizer machine and prednisone 10 mg daily and advised to follow-up with his [facility] care physician in the next 2 to 3 days and to return to the ER if he develop any new symptoms. Critical care attestation.: If time is entered above; I have spent that time in minutes in the direct care of this critically ill patient, excluding procedure time. ED Disposition Clinical Impression: Shortness of breath, Chest pain Disposition: DC-01 TO HOME OR SELFCARE Is pt being admited?: No Condition: Stable Instructions: Chest Pain (ED), Reactive Airways Disease (ED) Referrals: PRIMARY CARE, [Primary Care Provider] - 3-5 Days
[2019-09-26] MEDS ORDERED: ASPIRIN 325 MG TAB ONE (02:46)
[2019-09-26] MEDS ORDERED: methylPREDNISolone Sod Succinate 125 MG/2 ML INJ ONE (02:46)
[2019-09-26 04:30] VITALS: BP 115/79
== END 2019-09-26 04:27 | disposition home or self-care (01) ==
LOC: ED 18:30
DX: R07.89 Other chest pain (principal); R06.02 Shortness of breath; J45.909 Unspecified asthma, uncomplicated; Z79.899 Other long term (current) drug therapy
CPT/HCPCS: 36415; 71046; 80048; 84484; 85007; 85025; 93005; 94644; 96372; 99284; J2930